=== PATIENT | male | born 1975 | race Caucasian/White ===

== ENCOUNTER 2020-07-18 19:08 | Inpatient (IN) | payer OTHER ==
[2020-07-18 20:22] LABS: #Eosinphils 0.1 thou/uL (0.0-0.7); #Lymphocytes 0.7 thou/uL (1.20-3.40); #Monocytes 0.5 thou/uL (0.11-0.59); %Basophils 0.3 % (0.0-1.0); %Eosinophils 1.4 % (0.0-10.0); %Lymphocytes 16.7 % (21.0-51.0); %Monocytes 12.1 % (0.0-10.0); %Neutrophils 69.5 % (42.0-75.0); Hemoglobin 13.3 g/dL (14.0-18.0); Mean Corpuscular HGB CONC 35.3 g/dL (32.0-36.0); Mean Corpuscular Hemoglobin 31.7 pg (27.0-31.0); Mean Corpuscular Volume 89.9 fL (78.0-98.0); Mean Platelet Volume 9.5 fL (7.4-10.4); Platelet Count 125 thou/uL (130-400); RBC Distribution Width 13.4 % (11.5-14.5); Red Blood Cell (RBC) Count 4.18 mill/uL (4.70-6.10); White Blood Cell (WBC) Count 4.4 thou/uL (4.8-10.8)
[2020-07-18 20:44] LABS: ALT (SGPT) 176 U/L (8-55); AST (SGOT) 63 U/L (5-34); Albumin 4.1 g/dL (3.5-5.0); Alkaline Phosphatase 86 U/L (40-110); Anion Gap 17 mmol/L (10-20); BUN (Urea Nitrogen) 11 mg/dL (8.9-20.6); Bilirubin, Total 2.3 mg/dL (0.2-1.2); Calc. Creatinine Clearance 0 mL/min (70-130); Calcium 9.2 mg/dL (7.8-10.44); Carbon Dioxide 27 mmol/L (22-29); Chloride 100 mmol/L (98-107); Globulin 3.1 g/dL (2.4-3.5); Glucose 94 mg/dL (70-105); Lipase 14 U/L (8-78); Potassium 3.5 mmol/L (3.5-5.1); Protein, Total 7.2 g/dL (6.0-8.3); Sodium 140 mmol/L (136-145)
[2020-07-18] MEDS ORDERED: Ondansetron PF 4 MG/2 ML Vial ONE (21:12)
--- NOTE | 2020-07-18 21:56 | CT ---
CT Abdomen Pelvis W Con: 07/18/2020 7:23 PM CLINICAL INFORMATION: Status post cholecystectomy 2 days ago with nausea and vomiting COMPARISON: None. TECHNIQUE: Multiple contiguous axial images were obtained and a CT of the abdomen and pelvis with IV contrast. C oronal and sagittal reformats were performed. FINDINGS: Lower Chest: Mild right basilar atelectasis Abdomen: Liver: within normal limits. Bile Ducts: Normal caliber. Gallbladder: Removed. Adjacent stranding changes are likely from recent surgery. Pancreas: within normal limits. Spleen: within normal limits. Adrenals: within normal limits. Kidneys: 4.3 cm left renal cyst. Pelvis: Reproductive Organs: No pelvic masses. Ureters: within normal limits. Bladder: within normal limits. Peritoneum: No ascites or free air, no fluid collection. Bowel: Normal caliber. Status post gastric sleeve procedure. Mesentery and Retroperitoneum: No enlarged mesenteric or retroperitoneal lymph nodes. Vessels: Normal. Abdominal Wall: within normal limits. Bones: Degenerative changes in the spine. IMPRESSION: 1. Post surgical changes from gastric sleeve procedure and cholecystectomy without acute intra-abdomi nal/pelvic abnormality 2. Left renal cyst
[2020-07-18] MEDS ORDERED: Lidocaine Viscous Sol 2% 15 ml UD Cup ONE (22:17)
[2020-07-18] MEDS ORDERED: Mag-Al 1200 mg/1200 mg/30 ML UDCUP ONE (22:17)
[2020-07-18] MEDS ORDERED: Haloperidol Lactate 5 MG/ML VIAL ONE (23:59)
[2020-07-18] MEDS ORDERED: diphenhydrAMINE 50 MG/ML VIAL ONE (23:59)
[2020-07-19] MEDS ORDERED: Ondansetron ODT 4 MG TAB PO PRN (03:01)
--- NOTE | 2020-07-19 03:15 | PDOC.HHP ---
Hospitalist HPI - History of Present Illness Nausea and vomiting History of Present Illness: This is a 44-year-old male patient With a history of obesity who presents on account of persistent nausea and vomiting for the past 2 to 3 weeks. Of note, patient had gastric sleeve surgery and [facility] about 4 weeks ago a week after which he started having nausea and vomiting. He did return to [place] a couple of days ago to have cholecystectomy. Since returning however he has been having worsening nausea and vomiting with bilious sputum and constant feeling of gagging leading to come to the ED for further evaluation. His vomitus is every now and then bloodstained At presentation his blood pressure was 175/86, pulse 74, temperature 98.4 respiratory 18 saturating 98 on room air. His BMP was essentially within normal limits, bilirubin was slightly elevated at 2.3 with AST at 63 and ALT at 176. WBC was 4.4, hemoglobin 13.[address] abdomen was done which showed postsurgical changes from gastric sleeve procedure and cholecystectomy without acute intra-abdominal abnormality. Left liver cyst was noted. Hospitalist ROS - Review of Systems Constitutional: denies: fever, chills, sweats Respiratory: denies: cough, dry, shortness of breath, hemoptysis Cardiovascular: denies: chest pain, palpitations, orthopnea Gastrointestinal: reports: nausea, vomiting. denies: abdominal pain, diarrhea, constipation Genitourinary: denies: dysuria, frequency, incontinence, hematuria Neurological: denies: weakness, numbness, incoordination All other systems reviewed; all pertinent +/- noted in HPI/Subj - Medication Medications: Medications: No chronic medications. Allergies: No known drug allergies Hospitalist History - Past Medical History Other Medical History: Obesity - Past Surgical History Other Surgical History: Gastric sleeve surgery, cholecystectomy - Family History Family History: reports: hypertension - Social History Smoking Status: Never smoker Alcohol: reports: None Living Situation: With Family Activity level: independent ambulation - Exam General Appearance: awake alert General - other findings: Severely obese Eye: PERRL, anicteric sclera ENT: normocephalic atraumatic, no oropharyngeal lesions, moist mucosa ENT - other findings: Erythematous wound in the left wall of oropharynx Heart: RRR, no murmur, no gallops, no rubs Respiratory: CTAB, no wheezes, no rales, no ronchi Gastrointestinal: soft, non-tender, non-distended, normal bowel sounds Gastrointestinal - other findings: Surgical wound is clean Extremities: no cyanosis, no clubbing, no edema Neurological: cranial nerve grossly intact, no weakness, no focal deficits Musculoskeletal: normal tone, normal strength, no muscle wasting Psychiatric: normal affect, normal behavior, A&O x 3 Hospitalist Results - Labs Result Diagrams: 07/20/20 05:48 07/20/20 05:48 Lab results: WBC 4.4 thou/uL (4.8-10.8) L 07/18/20 19:58 Hgb 13.3 g/dL (14.0-18.0) L 07/18/20 19:58 Hct 37.6 % (42.0-52.0) L 07/18/20 19:58 MCV 89.9 fL (78.0-98.0) 07/18/20 19:58 Plt Count 125 thou/uL (130-400) L 07/18/20 19:58 Neutrophils % 69.5 % (42.0-75.0) 07/18/20 19:58 Sodium 140 mmol/L (136-145) 07/18/20 19:58 Potassium 3.5 mmol/L (3.5-5.1) 07/18/20 19:58 Chloride 100 mmol/L (98-107) 07/18/20 19:58 Carbon Dioxide 27 mmol/L (22-29) 07/18/20 19:58 BUN 11 mg/dL (8.9-20.6) 07/18/20 19:58 Creatinine 0.85 mg/dL (0.7-1.3) 07/18/20 19:58 Glucose 94 mg/dL (70-105) 07/18/20 19:58 Lactic Acid 1.1 mmol/L (0.5-2.2) 07/18/20 19:58 Calcium 9.2 mg/dL (7.8-10.44) 07/18/20 19:58 Total Bilirubin 2.3 mg/dL (0.2-1.2) H 07/18/20 19:58 AST 63 U/L (5-34) H 07/18/20 19:58 ALT 176 U/L (8-55) H 12/22/20 19:58 Alkaline Phosphatase 86 U/L (40-110) 07/18/20 19:58 Serum Total Protein 7.2 g/dL (6.0-8.3) 07/18/20 19:58 Albumin 4.1 g/dL (3.5-5.0) 07/18/20 19:58 Lipase 14 U/L (8-78) 07/18/20 19:58 Hospitalist H&P A/P - Plan Plan: This is a 44-year-old male patient with a history of obesity presenting with persistent nausea and vomiting after he had a gastric sleeve surgery. Nausea and vomiting Likely secondary to surgery however because not clear. Received IV hydrationwe will continue As needed ondansetron IV/oral GI consult in a.m. Hypertension Blood pressure elevated We will start amlodipine As needed hydralazine Monitor BP Left renal cyst Follow-up after acute event subsided. Skinobesity S/p cholecystectomy/gastric sleeve Generally stable Surgery consult if needed for reevaluation. CODE STATUS full code VTE prophylaxisleft
[2020-07-19 04:41] LABS: #Lymphocytes 0.9 thou/uL (1.20-3.40); #Monocytes 0.5 thou/uL (0.11-0.59); #Neutrophils 2.2 thou/uL (1.40-6.50); %Basophils 0.3 % (0.0-1.0); %Eosinophils 0.7 % (0.0-10.0); %Lymphocytes 23.6 % (21.0-51.0); %Monocytes 14.4 % (0.0-10.0); %Neutrophils 60.9 % (42.0-75.0); Hemoglobin 11.7 g/dL (14.0-18.0); Mean Corpuscular HGB CONC 34.3 g/dL (32.0-36.0); Mean Corpuscular Hemoglobin 30.8 pg (27.0-31.0); Mean Corpuscular Volume 89.8 fL (78.0-98.0); Mean Platelet Volume 9.4 fL (7.4-10.4); Platelet Count 104 thou/uL (130-400); RBC Distribution Width 13.3 % (11.5-14.5); Red Blood Cell (RBC) Count 3.81 mill/uL (4.70-6.10); White Blood Cell (WBC) Count 3.6 thou/uL (4.8-10.8)
[2020-07-19 04:51] LABS: Anion Gap 15 mmol/L (10-20); BUN (Urea Nitrogen) 11 mg/dL (8.9-20.6); Calc. Creatinine Clearance 0 mL/min (70-130); Calcium 8.6 mg/dL (7.8-10.44); Carbon Dioxide 26 mmol/L (22-29); Chloride 102 mmol/L (98-107); Glucose 94 mg/dL (70-105); Potassium 3.2 mmol/L (3.5-5.1); Sodium 140 mmol/L (136-145)
[2020-07-19 05:11] VITALS: BMI 29.1
[2020-07-19] MEDS: Dextrose 5%-Lactated Ringers 1,000 ML IV SCH ×3 (05:35→21:30)
[2020-07-19] MEDS: hydrALAZINE 20 MG/ML VIAL SLOW IVP PRN ×2 (05:36→19:46)
[2020-07-19] MEDS: Amlodipine 10 MG TAB PO SCH (09:10)
[2020-07-19] MEDS: Enoxaparin Sodium 40 MG/0.4 ML SYRINGE SC SCH (09:11)
--- NOTE | 2020-07-19 12:10 | PDOC.HOSPP ---
- Subjective Encounter Date: 07/19/20 Encounter Time: 12:08 Subjective: Mr. Larsen was seen today in follow-up of persistent Nausea and vomiting. He says as long as he is awake, he is either feeling nauseated. or vomiting. He notes some mild abdominal discomfort. - Objective Vital Signs & Weight: Vital Signs (12 hours) Temp Pulse Resp BP BP BP Pulse Ox 07/19/20 07:51 98.2 F 77 16 169/96 H 95 07/19/20 05:36 69 195/116 H 07/19/20 04:40 98.3 F 70 18 195/116 H 96 Weight Weight 186 lb 1.6 oz I&O: 07/18/20 07/19/20 07/20/20 06:59 06:59 06:59 Intake Total 123 Balance 123 Result Diagrams: 07/19/20 04:12 07/19/20 04:12 Hospitalist ROS - Medication Medications: Active Medications Generic Name Dose Route Start Last Admin Trade Name Freq PRN Reason Stop Dose Admin Amlodipine Besylate 10 mg 07/19/20 09:00 07/19/20 09:10 Amlodipine 10 Mg Tab PO Not Given DAILY ADRIANE Enoxaparin Sodium 40 mg 07/19/20 09:00 07/19/20 09:11 Enoxaparin Sodium 40 Mg/0.4 Ml Syringe SC 40 mg 0900 ADRIANE Administration Hydralazine HCl 10 mg 07/19/20 03:02 07/19/20 05:36 Hydralazine 20 Mg/Ml Vial SLOW IVP 10 mg Q4H PRN Administration Hypertension Dextrose/Lactated Ringer's 1,000 mls @ 75 mls/hr 07/19/20 03:00 07/19/20 05:35 D5 Lr IV 1,000 mls .[id number] ADRIANE Administration - Exam Eye: PERRL, anicteric sclera Heart: RRR, no murmur, no gallops, no rubs, normal peripheral pulses Respiratory: CTAB, no wheezes, no rales, no ronchi, normal chest expansion Gastrointestinal: soft (+ mild diffuse tenderness, no rebound or guarding), non- distended, normal bowel sounds Extremities: no cyanosis, no edema Hosp A/P (1) Nausea and vomiting Code(s): R11.2 - NAUSEA WITH VOMITING, UNSPECIFIED Status: Acute (2) Obesity Code(s): E66.9 - OBESITY, UNSPECIFIED Status: Chronic (3) Hypertension Code(s): I10 - ESSENTIAL (PRIMARY) HYPERTENSION Status: Acute - Plan * Nausea and vomiting following Gastric sleeve one month ago, and recent Cholecystectomy, 3 days ago. . He says he was doing fine after the gastric sleeve, for about 3 weeks, then he began to have difficulty with Nausea and vomiting. He says he was instructed to go back to [place], where he had a lap liliana done, he says due to findings of elevated liver function tests. However his symptoms have not improved.- Will place him on scheduled Reglan. and continue IV fluids, and monitor his electrolytes, and replace as needed * If his symptoms persists, then GI consult. * HTN- blood pressure is elevated- will add medication prn, and once tolerating p.o. consider a scheduled anti-hypertensive.
[2020-07-19] MEDS ORDERED: Potassium Chloride 20 MEQ in Premix Bag 1 BAG IVPB SCH (12:30)
[2020-07-19] MEDS: Metoclopramide HCl 10 MG/2 ML VIAL IVP SCH ×3 (13:04→23:44)
[2020-07-19] MEDS: Morphine 2 MG/ML VIAL SLOW IVP PRN ×2 (16:45→20:38)
[2020-07-19] MEDS: Pantoprazole 40 MG VIAL IVP SCH (19:55)
[2020-07-19] MEDS: Ondansetron PF 4 MG/2 ML Vial IVP PRN (19:55)
[2020-07-19] MEDS ORDERED: Labetalol HCl 100 MG/20 ML VIAL SLOW IVP PRN (21:33)
[2020-07-20] MEDS: Morphine 2 MG/ML VIAL SLOW IVP PRN (00:17)
[2020-07-20] MEDS: Metoclopramide HCl 10 MG/2 ML VIAL IVP SCH ×4 (06:11→23:26)
[2020-07-20 06:41] LABS: #Lymphocytes 0.6 thou/uL (1.20-3.40); #Monocytes 0.4 thou/uL (0.11-0.59); #Neutrophils 2.1 thou/uL (1.40-6.50); %Basophils 0.2 % (0.0-1.0); %Eosinophils 1.1 % (0.0-10.0); %Monocytes 13.7 % (0.0-10.0); %Neutrophils 67.1 % (42.0-75.0); Hemoglobin 11.6 g/dL (14.0-18.0); Mean Corpuscular HGB CONC 35.4 g/dL (32.0-36.0); Mean Corpuscular Hemoglobin 31.8 pg (27.0-31.0); Mean Corpuscular Volume 89.9 fL (78.0-98.0); Mean Platelet Volume 9.3 fL (7.4-10.4); Platelet Count 112 thou/uL (130-400); RBC Distribution Width 13.3 % (11.5-14.5); Red Blood Cell (RBC) Count 3.64 mill/uL (4.70-6.10); White Blood Cell (WBC) Count 3.1 thou/uL (4.8-10.8)
[2020-07-20 06:45] LABS: BUN (Urea Nitrogen) 7 mg/dL (8.9-20.6); Calc. Creatinine Clearance 145 mL/min (70-130); Calcium 8.5 mg/dL (7.8-10.44); Chloride 100 mmol/L (98-107); Glucose 126 mg/dL (70-105); Magnesium 1.7 mg/dL (1.6-2.6); Potassium 3.2 mmol/L (3.5-5.1); Sodium 137 mmol/L (136-145)
[2020-07-20] MEDS: Dextrose 5%-Lactated Ringers 1,000 ML IV SCH ×2 (06:49→09:24)
[2020-07-20 07:14] LABS: Anion Gap 17 mmol/L (10-20); Carbon Dioxide 23 mmol/L (22-29)
[2020-07-20] MEDS ORDERED: Electrolyte Replacement Protocol 1 EACH FS ONE (08:12)
[2020-07-20] MEDS ORDERED: NON-CRITICAL ELECTROLYTE REPLACEMENT PROTOCOL FS PRN (08:15)
[2020-07-20] MEDS: Pantoprazole 40 MG VIAL IVP SCH ×2 (09:22→20:07)
[2020-07-20] MEDS: Amlodipine 10 MG TAB PO SCH (09:22)
[2020-07-20] MEDS: Enoxaparin Sodium 40 MG/0.4 ML SYRINGE SC SCH (09:23)
[2020-07-20 09:53] LABS: HBCM Index 0.12 S/CO (0-0.79); HBSAg Index 0.27 S/CO (0-0.99); Hep A IgM AB Non-Reactive (NonReactive); Hep A IgM S/CO 0.14 S/CO (0-0.79); Hep B Surf Ag Non-Reactive S/CO (NonReactive); Hepatitis B Core IgM Abs Non-Reactive (NonReactive)
[2020-07-20 10:35] LABS: Hep C IgG Ab Reflex HepC Qnt (NonReactive); Hep C Index 1.51 S/CO (0-0.79)
--- NOTE | 2020-07-20 11:59 | PDOC.HOSPP ---
- Subjective Encounter Date: 07/20/20 Encounter Time: 11:56 Subjective: 44-year-old male past medical history of hypertension, GERD, obesity who presents for persistent nausea and vomiting after sleeve gastrectomy on May 24. Patient reports that he has had consistent nausea and vomiting and since his liver enzymes were also elevated he underwent a cholecystectomy 4 days ago. Patient has had a worsening in his nausea and vomiting symptoms since the surgery. Patient unable to tolerate practically anything p.o. He does note that he sometimes bring up blood-streaked sputum and has difficulty swallowing. Patient reports that he has a large bruise in the back of his throat from the intubation which is making his nausea and vomiting much worse. He endorses generalized abdominal pain, which is intermittent. Has not passed any stools since surgery, but is passing flatus. He denies shortness of breath, chest pain, palpitations. - Objective Vital Signs & Weight: Vital Signs (12 hours) Temp Pulse Resp BP BP BP Pulse Ox 07/20/20 11:21 98.4 F 83 16 157/96 H 96 07/20/20 09:22 86 136/79 07/20/20 08:51 98.5 F 86 14 136/79 96 07/20/20 04:31 98.6 F 92 16 158/95 H 95 07/20/20 00:13 85 166/90 H Weight Admit Weight 186 lb 1.6 oz Weight 186 lb 1.6 oz I&O: 07/19/20 07/20/20 07/21/20 06:59 06:59 06:59 Intake Total 123 Balance 123 Result Diagrams: 07/21/20 05:23 07/21/20 05:23 Hospitalist ROS - Review of Systems Constitutional: denies: fever, chills, sweats, weakness, malaise, other Eyes: denies: pain, vision change, conjunctivae inflammation, eyelid inflammation, redness, other ENT: denies: ear pain, ear discharge, nose pain, nose discharge, nose congestion, mouth pain, mouth swelling, throat pain, throat swelling, other Respiratory: denies: cough, dry, shortness of breath, hemoptysis, SOB with excertion, pleuritic pain, sputum, wheezing, other Cardiovascular: denies: chest pain, palpitations, orthopnea, paroxysmal noc. dyspnea, edema, light headedness, other Gastrointestinal: reports: nausea, vomiting, abdominal pain, constipation. denies: diarrhea, melena, hematochezia, other Genitourinary: denies: dysuria, frequency, incontinence, hematuria, retention, other Musculoskeletal: denies: neck pain, shoulder pain, arm pain, back pain, hand p ain, leg pain, foot pain, other Skin: denies: rash, lesions, nilton, bruising, other Neurological: denies: weakness, numbness, incoordination, change in speech, confusion, seizures, other - Medication Medications: Active Medications Generic Name Dose Route Start Last Admin Trade Name Freq PRN Reason Stop Dose Admin Amlodipine Besylate 10 mg 07/19/20 09:00 07/20/20 09:22 Amlodipine 10 Mg Tab PO Not Given DAILY ADRIANE Enoxaparin Sodium 40 mg 07/19/20 09:00 07/20/20 09:23 Enoxaparin Sodium 40 Mg/0.4 Ml Syringe SC 40 mg 0900 ADRIANE Administration Hydralazine HCl 10 mg 07/19/20 03:02 07/19/20 19:46 Hydralazine 20 Mg/Ml Vial SLOW IVP 10 mg Q4H PRN Administration Hypertension Dextrose/Lactated Ringer's 1,000 mls @ 75 mls/hr 07/19/20 03:00 07/20/20 09 :24 D5 Lr IV 1,000 mls .[id number] ADRIANE Administration Labetalol HCl 10 mg 07/19/20 21:33 07/19/20 23:43 Labetalol Hcl 100 Mg/20 Ml Vial SLOW IVP 07/20/20 21:34 10 mg ONE PRN Administration Systolic BP > 180 Metoclopramide HCl 10 mg 07/19/20 12:15 07/20/20 06:11 Metoclopramide Hcl 10 Mg/2 Ml Vial IVP 10 mg Q6H ADRIANE Administration Morphine Sulfate 2 mg 07/19/20 15:45 07/20/20 00:17 Morphine 2 Mg/Ml Vial SLOW IVP 2 mg Q4H PRN Administration Moderate to Severe Pain (6-10) Ondansetron HCl 4 mg 07/19/20 03:01 07/19/20 19:55 Ondansetron Pf 4 Mg/2 Ml Vial IVP 4 mg Q6H PRN Administration Nausea/Vomiting Pantoprazole Sodium 40 mg 07/19/20 21:00 07/20/20 09:22 Pantoprazole 40 Mg Vial IVP 40 mg Q12HR ADRIANE Administration - Exam General Appearance: NAD, awake alert Eye: PERRL, anicteric sclera ENT: moist mucosa ENT - other findings: Laceration and hematoma to soft palate Neck: supple, symmetric, no JVD, no thyromegaly, no lymphadenopathy, no carotid bruit Heart: RRR, no murmur, no gallops, no rubs, normal peripheral pulses Respiratory: CTAB, no wheezes, no rales, no ronchi, normal chest expansion, no tachypnea, normal percussion Gastrointestinal: soft, non-tender, non-distended, normal bowel sounds, no palpable masses, no hepatomegaly, no splenomegaly, no bruit Extremities: no cyanosis, no clubbing, no edema Skin: normal turgor, no lesions, no rashes Neurological: cranial nerve grossly intact, normal sensation to touch, no weakness, no focal deficits, no new deficit Musculoskeletal: normal tone, normal strength, no muscle wasting Psychiatric: normal affect, normal behavior, A&O x 3 Hosp A/P - Plan Chronic nausea and vomiting with p.o. intolerance Patient status post sleeve gastrectomy on May 16, 2020 and has had persistent nausea and vomiting with p.o. intolerance. Patient's nausea vomiting symptoms were worsened since patient also had elevated liver enzymes he underwent a cholecystectomy in [place] a few days ago. Patient reports worsening of his nausea and vomiting after his cholecystectomy. Patient has tried Zofran and Reglan dose without effect. His liver enzymes remain elevated. He has mild abdominal pain but is nonperitoneal. CT abdomen showed postsurgical changes but no acute findings. Patient requests to speak with GI doctor about his persistent symptoms. Suspect nausea and vomiting likely secondary to postoperative course of sleeve gastrectomy compounded by effects of recent anesthesia. Plan Continue Zofran, Reglan IV maintenance fluids GI consult Dysphagia with soft palate injury Patient reports he has difficulty swallowing and has been bringing up blood over the past few days since his cholecystectomy. Patient reports that his throat was injured during intubation. On exam there is a laceration and small hematoma to the soft palate. Will obtain CT neck to assess for hematoma since patient reports continued worsening difficulty swallowing. Medically stable with no concern for immediate threat to airway. Plan CT neck Elevated liver enzymes Patient with mildly elevated liver enzymes associated with nausea and vomiting. Elevation was initially thought to be related to patient's gallbladder, however they still elevated status post cholecystectomy. CT scan with no acute findings. Suspect nonalcoholic fatty liver disease versus mild elevation due to surgery. Will obtain hepatitis panel as well as GI consult to further evaluate. Plan Hepatitis panel TSH GI consult Hypertension History of hypertension on home amlodipine. Will keep patient on IV hydralazine and labetalol as needed due to p.o. intolerance. DVT prophylaxisLovenox Full code Case discussed with Dr. Garcia.
[2020-07-20 12:58] LABS: ALT (SGPT) 329 U/L (8-55); AST (SGOT) 125 U/L (5-34); Albumin 3.5 g/dL (3.5-5.0); Alkaline Phosphatase 110 U/L (40-110); Bilirubin, Direct 1.1 mg/dL (0.1-0.3); Bilirubin, Total 1.6 mg/dL (0.2-1.2); Protein, Total 6.2 g/dL (6.0-8.3)
[2020-07-20] MEDS ORDERED: Iopamidol-370 76% 500 ML 1 ML ONE (13:15)
[2020-07-20] MEDS ORDERED: Potassium Phosphate 30 MMOL in Sodium Chloride 0.9% 250 ML 250 ML IVPB SCH ×2 (15:00→16:15)
--- NOTE | 2020-07-20 15:45 | CT ---
CT OF THE SOFT TISSUES OF THE NECK WITH IV CONTRAST INDICATION: History of traumatic intubation with concern for soft palate hematoma COMPARISON: None FINDINGS: Aerodigestive tract: Clear. Parotids/Submandibular/Thyroid glands: Normal. Lymph nodes: No pathologically enlarged lymph nodes. Lung Apices: Clear. Bones: No acute fracture or subluxation demonstrated. There is scattered degenerative and osteoarthr itic change present. Incidentals: None. IMPRESSION: No overt evidence to suggest traumatic injury to the visualized aerodigestive tract.
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
[2020-07-20] MEDS ORDERED: diphenhydrAMINE 50 MG/ML VIAL IVP SCH (23:45)
[2020-07-21] MEDS: Dextrose 5%-Lactated Ringers 1,000 ML IV SCH (05:23)
[2020-07-21] MEDS: Metoclopramide HCl 10 MG/2 ML VIAL IVP SCH ×2 (05:23→11:56)
[2020-07-21 05:40] LABS: INR-International Normal Ratio 1.3; Prothrombin Time 16.5 sec (12.0-14.7)
[2020-07-21 05:46] LABS: Hemoglobin A1c 4.6 % (4.0-6.0)
[2020-07-21 05:59] LABS: Magnesium 1.6 mg/dL (1.6-2.6)
[2020-07-21 06:02] LABS: ALT (SGPT) 245 U/L (8-55); AST (SGOT) 56 U/L (5-34); Albumin 3.5 g/dL (3.5-5.0); Alkaline Phosphatase 101 U/L (40-110); Anion Gap 12 mmol/L (10-20); BUN (Urea Nitrogen) 5 mg/dL (8.9-20.6); Bilirubin, Total 1.5 mg/dL (0.2-1.2); Calc. Creatinine Clearance 141 mL/min (70-130); Calcium 8.5 mg/dL (7.8-10.44); Carbon Dioxide 30 mmol/L (22-29); Chloride 99 mmol/L (98-107); Globulin 2.9 g/dL (2.4-3.5); Glucose 119 mg/dL (70-105); Iron 62 ug/dL (65-175); Lipase 17 U/L (8-78); Phosphorus 3.3 mg/dL (2.3-4.7); Potassium 3.3 mmol/L (3.5-5.1); Protein, Total 6.4 g/dL (6.0-8.3); Sodium 138 mmol/L (136-145)
[2020-07-21 06:10] LABS: Band 20 % (5-11); Eosinophils 1 % (0-10); Hemoglobin 11.2 g/dL (14.0-18.0); Hypochromia SLIGHT = 6-15 cells (100X) (0-5/hpf); Lymphocytes 22 % (21-51); MDiff Complete? YES; Mean Corpuscular HGB CONC 35.4 g/dL (32.0-36.0); Mean Corpuscular Hemoglobin 31.8 pg (27.0-31.0); Mean Corpuscular Volume 89.8 fL (78.0-98.0); Mean Platelet Volume 8.9 fL (7.4-10.4); Monocytes 14 % (0-10); Neutrophil 36 % (42-75); Platelet Count 94 thou/uL (130-400); Platelet Morphology Comment Appears Decreased; RBC Distribution Width 13.1 % (11.5-14.5); Reactive Lymphocytes 7 % (0-10); Red Blood Cell (RBC) Count 3.52 mill/uL (4.70-6.10); White Blood Cell (WBC) Count 2.6 thou/uL (4.8-10.8)
[2020-07-21 06:19] LABS: Ferritin 1129.23 ng/mL (22-322); Thyroid Stimulating Hormone 4.1494 uIU/mL (0.35-4.94)
[2020-07-21] MEDS: Enoxaparin Sodium 40 MG/0.4 ML SYRINGE SC SCH (07:48)
[2020-07-21] MEDS ORDERED: NS 0.9% w/ 40 MEQ KCL 1,000 ML IV SCH (09:45)
[2020-07-21] MEDS ORDERED: Electrolyte Replacement Protocol 1 EACH FS SCH (10:00)
--- NOTE | 2020-07-21 10:43 | NM ---
Exam: Nuclear medicine HIDA scan HISTORY: Status post cholecystectomy. Pain. Evaluate for bile leak COMPARISON: None Correlation: Abdomen pelvis CT 07/18/2020 TECHNIQUE: Patient was ministered 5.1 mCi of technetium 99m mebrofenin intravenously. FINDINGS: Appropriate uptake of the radiotracer by the hepatic parenchyma. Localization of radiotrace r in the intrahepatic biliary system. Passage of radiotracer from the common bile duct into the small bowel. No scintigraphic evidence of bile leak. IMPRESSION: No scintigraphic evidence of a bile leak.
[2020-07-21] MEDS: Ondansetron PF 4 MG/2 ML Vial IVP PRN (10:59)
[2020-07-21] MEDS: Pantoprazole 40 MG VIAL IVP SCH (11:00)
[2020-07-21] MEDS: Amlodipine 10 MG TAB PO SCH (11:00)
[2020-07-21] MEDS ORDERED: diphenhydrAMINE 50 MG/ML VIAL IVP PRN (11:12)
[2020-07-21] MEDS ORDERED: methylPREDNISolone Sod Succ/PF 125 MG/2 ML VIAL IVP SCH (12:00)
[2020-07-21 12:10] VITALS: TEMP 98.2
[2020-07-21 12:13] VITALS: BP 166/101
[2020-07-21] MEDS ORDERED: Magnesium 2 GM/50 ML 2 GM in Premix Bag 1 BAG IVPB SCH (12:30)
--- NOTE | 2020-07-21 13:08 | PDOC.HOSPP ---
- Subjective Encounter Date: 07/21/20 Encounter Time: 09:10 Subjective: Patient seen this morning. He still has difficulty with swallowing currently n.p.o. so far. Throat examined not able to visualize completely. He has no visible respiratory distress and not toxic looking. A CT of the neck were reviewed with him. He currently is getting Levaquin. - Objective Vital Signs & Weight: Vital Signs (12 hours) Temp Pulse Resp BP Pulse Ox 07/21/20 12:07 98.2 F 74 16 166/101 H 94 L 07/21/20 11:00 84 96 07/21/20 07:41 98.6 F 84 18 154/86 H 96 07/21/20 04:00 97.6 F 96 20 139/81 93 L Weight Admit Weight 186 lb 1.6 oz Weight 186 lb 1.6 oz Result Diagrams: 07/21/20 05:23 07/21/20 05:23 Hospitalist ROS - Medication Medications: Active Medications Generic Name Dose Route Start Last Admin Trade Name Freq PRN Reason Stop Dose Admin Amlodipine Besylate 10 mg 07/19/20 09:00 07/21/20 11:00 Amlodipine 10 Mg Tab PO Not Given DAILY ADRIANE Diphenhydramine HCl 12.5 mg 07/21/20 11:12 07/21/20 11:56 Diphenhydramine 50 Mg/Ml Vial IVP 12.5 mg Q6H PRN Administration Itching & Insomnia Enoxaparin Sodium 40 mg 07/19/20 09:00 07/21/20 07:48 Enoxaparin Sodium 40 Mg/0.4 Ml Syringe SC Not Given 0900 ADRIANE Hydralazine HCl 10 mg 07/19/20 03:02 07/19/20 19:46 Hydralazine 20 Mg/Ml Vial SLOW IVP 10 mg Q4H PRN Administration Hypertension Levofloxacin 500 mg/ Device 100 mls @ 100 mls/hr 07/20/20 16:00 07/20/20 17:18 IVPB 100 mls Q24HR ADRIANE Administration Potassium Chloride/Sodium Chloride 1,000 mls @ 100 mls/hr 07/21/20 09:45 07/21/20 11:58 Ns 0.9% W/ 40 Meq Kcl IV 1,000 mls .Q10H ADRIANE Administration Methylprednisolone Sodium Succinate 60 mg 07/21/20 12:00 07/21/20 11:56 Methylprednisolone Sod Succ/Pf 125 Mg/2 Ml Vial IVP 07/23/20 00:01 60 mg Q12H ADRIANE Administration Metoclopramide HCl 10 mg 07/19/20 12:15 07/21/20 11:56 Metoclopramide Hcl 10 Mg/2 Ml Vial IVP 10 mg Q6H ADRIANE Administration Morphine Sulfate 2 mg 07/19/20 15:45 07/20/20 00:17 Morphine 2 Mg/Ml Vial SLOW IVP 2 mg Q4H PRN Administration Moderate to Severe Pain (6-10) Ondansetron HCl 4 mg 07/19/20 03:01 07/21/20 10:59 Ondansetron Pf 4 Mg/2 Ml Vial IVP 4 mg Q6H PRN Administration Nausea/Vomiting Pantoprazole Sodium 40 mg 07/19/20 21:00 07/21/20 11:00 Pantoprazole 40 Mg Vial IVP 40 mg Q12HR ADRIANE Administration - Exam General Appearance: NAD, awake alert Eye: PERRL ENT: normocephalic atraumatic Neck: supple Heart: RRR, normal peripheral pulses Respiratory: CTAB, normal chest expansion Gastrointestinal: soft Neurological: cranial nerve grossly intact, no focal deficits Psychiatric: A&O x 3 Hosp A/P - Plan Chronic nausea and vomiting with p.o. 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 - CT abdomen showed postsurgical changes but no acute findings. Patient requests to speak with GI doctor about his persistent symptoms. Continue antiemetics. -HIDA scan no scintigraphic evidence of a bile leak. Dysphagia with soft palate injury Hemoptysis since cholecystectomy -Possible trauma during intubation for surgery Patient reports he has difficulty swallowing and has been bringing up blood over the past few days since his cholecystectomy. Patient reports that his throat was injured during intubation. On exam there is a laceration and small hematoma to the soft palate. Will obtain CT neck to assess for hematoma since patient reports continued worsening difficulty swallowing. Medically stable with no concern for immediate threat to airway. Plan CT neck did not show any traumatic injury in the aerodigestive tract Elevated liver enzymes -Trending down -Status post cholecystectomy Hypertension History of hypertension on home amlodipine. Will keep patient on IV hydralazine and labetalol as needed due to p.o. intolerance.
--- NOTE | 2020-07-21 14:28 | PRG ---
DATE OF SERVICE: 07/21/2020 SUBJECTIVE: Mr. Larsen states he is able to tolerate liquids. However, the nurse says he has been retching every time he does drink. He reports when he awakes in the morning, he gets some phlegm in his throat and it will make him retch. His epigastric pain is better. He has had a HIDA scan today, which showed no evidence of bile leak and no evidence of biliary obstruction. CT scan of the neck soft tissue was done yesterday that was negative. PHYSICAL EXAMINATION: GENERAL: He is resting in bed. He is on IV fluids. VITAL SIGNS: Temperature is 98, pulse 84, blood pressure 166/101, mother is at the bedside. LUNGS: Clear. ABDOMEN: Nontender. Trocar sites are clean and dry. There is no palpable hepatosplenomegaly. LABORATORY DATA: White count 2.6, hemoglobin 11.2, platelet count 94,000. Sodium 138, potassium 3.3, BUN and creatinine 5 and 0.78. Iron 62, TIBC 198, saturation 31, ferritin 1129. Bilirubin 1.5, AST 56, ALT 245, lipase 17. IgG, IgM normal. Hepatitis C antibody positive. The remainder of workup pending. ASSESSMENT: 1. I think that his difficulty with vomiting and retching is due to a large hematoma on his soft palate. I have talked to Dr. Laws. She started him on a steroid for that to see if that helps decrease swelling. He is on a PPI. He is on Lovenox. He is on levofloxacin as well and Reglan. Recommended that if he continues to have the retching and the discomfort in his throat, they get ENT to look at this and see if there is a big hematoma or something else that needs to be done. 2. Thrombocytopenia with leukopenia, possibly related to portal hypertension. He denies any knowledge of liver disease or being told he had any liver disease or fatty liver at the time of his weight loss surgery in [place] or his cholecystectomy a few months after his weight loss surgery, but this probably is related to fatty liver or hepatitis C, that workup is pending. He is stable. He shows no signs of ascites. 3. Hepatitis C antibody positive with no prior knowledge of this. 4. Elevated liver enzymes. CT showed no evidence of biliary obstruction or ascites. HIDA scan showed no evidence of biliary obstruction or bile leak. RECOMMENDATIONS: 1. At this time, we will sign off. Would call ENT if throat issues persist to see if they have anything to offer. 2. He will see me in the office in 2 to 4 weeks with regard to his hep C antibody for followup. Job ID: [id number]
--- NOTE | 2020-07-21 15:09 | PDOC.DS.DS ---
Provider - Provider Date of Admission: 07/19/20 12:07 Admitting Provider: Wally Umaña MD Primary Care Physician: NO PCP PROVIDER Course - Hospital Course Hospital Course: Chronic nausea and vomiting with p.o. 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 - CT abdomen showed postsurgical changes but no acute findings. Patient requests to speak with GI doctor about his persistent symptoms. Continue antiemetics. -HIDA scan no scintigraphic evidence of a bile leak. Dysphagia with soft palate injury Hemoptysis since cholecystectomy -Possible trauma during intubation for surgery Patient reports he has difficulty swallowing and has been bringing up blood over the past few days since his cholecystectomy. Patient reports that his throat wa s injured during intubation. On exam there is a laceration and small hematoma to the soft palate. Will obtain CT neck to assess for hematoma since patient reports continued worsening difficulty swallowing. Medically stable with no concern for immediate threat to airway. Plan CT neck did not show any traumatic injury in the aerodigestive tract Elevated liver enzymes -Trending down -Status post cholecystectomy Hypertension History of hypertension on home amlodipine. Will keep patient on IV hydralazine and labetalol as needed due to p.o. intolerance. GI signed off. ENT consult placed given his severe swelling in his throat. He is not in any imminent danger for airway compromise. However he is not able to swallow anything I started him on prednisone. I am consulting ENT it is . If they are not able to make it today and patient still stubborn wanting to to go home then he needs to leave [place]. Patient feels that he can do the same thing what we are doing here, at home. I am not comfortable this patient going home at this point with the significant pharyngeal swelling. If the swelling reduced and he is able to have some soft diet intake then it is reasonable to send him home with outpatient follow-up with ENT. Lately I learned that patient decided to leave [place] and he does not want to wait for ENT. I will give him a short course of prednisone. Resuscitation Status: 07/19/20 02:56 Resuscitation Status Routine Resuscitation Status: FULL: Full Resuscitation - Labs Lab Results: 07/21/20 05:23 07/21/20 05:23 Abnormal Lab Results - Last 48 hrs 07/20/20 05:48: Potassium 3.2 L, BUN 7 L 07/20/20 05:48: WBC 3.1 L, RBC 3.64 L, Hgb 11.6 L, Hct 32.7 L, MCH 31.8 H, Plt Count 112 L, Lymphocytes % 18.0 L, Monocytes % 13.7 H, Lymphocytes # 0.6 L 07/20/20 08:40: Hepatitis C Antibody Reflex HepC Qnt H 07/20/20 11:56: Total Bilirubin 1.6 H, Direct Bilirubin 1.1 H, AST 125 H, ALT 329 H 07/21/20 05:23: Ferritin 1129.23 H 07/21/20 05:23: Potassium 3.3 L, Carbon Dioxide 30 H, BUN 5 L, Iron 62 L, Total Bilirubin 1.5 H, AST 56 H, ALT 245 H 07/21/20 05:23: WBC 2.6 L, RBC 3.52 L, Hgb 11.2 L, Hct 31.6 L, MCH 31.8 H, Plt Count 94 L, Neutrophils % (Manual) 36 L, Band Neuts % (Manual) 20 H, Monocytes % (Manual) 14 H, Plt Morphology Comment Appears Decreased L 07/21/20 05:23: PT 16.5 H 07/21/20 05:23: Iron 61 L, TIBC 198 L - Physical Exam Vitals: Vital Signs (12 hours) Temp Pulse Resp BP Pulse Ox 07/21/20 12:07 98.2 F 74 16 166/101 H 94 L 07/21/20 11:00 84 96 07/21/20 07:41 98.6 F 84 18 154/86 H 96 07/21/20 04:00 97.6 F 96 20 139/81 93 L Weight Admit Weight 186 lb 1.6 oz Weight 186 lb 1.6 oz Physical Exam: The patient was seen and examined on the day of discharge. Plan - Discharge Medications Home Medications: Medication Instructions Recorded Confirmed Type No Known 07/19/20 07/19/20 History Allergies: No Known Allergies Allergy (Verified 07/19/20 05:08) - Follow up Plan Referrals: PROVIDER,NO PCP [Primary Care Provider] - Disposition: HOME Quality - Care Measures CORE MEASURES:: N/A
[2020-07-21] MEDS: Potassium Chloride 20 MEQ in Premix Bag 1 BAG IVPB SCH (15:50)
--- NOTE | 2020-07-21 16:16 | CON ---
DATE OF CONSULTATION: 07/21/2020 REASON FOR CONSULTATION: Hepatitis C. HISTORY OF PRESENT ILLNESS: A 44-year-old who has a history of some type of hepatitis many years ago, which was diagnosed in this area, and apparently, they told him it was due to one of the statins that he was taking, does not recall his hepatitis C, but actually he tells me that it was then negative. He had been living in [facility] for many years, retired from the oil business, and [place] and then now he was in [place] for vacation, and apparently, developed nausea and abdominal pain, and was admitted to hospital in [place], had a cholecystectomy and sustained an injury to the posterior oropharynx, which has been associated with persistent pain and nausea, that is the main reason he was admitted to this hospital. He had not been able to keep food down for the past 3 weeks. He had some vomiting associated with it. No headaches. No visual symptoms. No dyspnea or cough. No abdominal pain. No genitourinary symptoms. No joint symptoms. PAST MEDICAL HISTORY: Some form of hepatitis many years ago, diagnosed in this area, is not clear what the diagnosis was, they said to him that was drug- related hepatitis, never heard from that issue later, presumably was due to statin. He had a gastric sleeve surgery in 2019 and a recent cholecystectomy in [place]. He sustained an injury to this posterior oropharynx by the Anesthesia introduction of an ET tube. SOCIAL HISTORY: Had been retired, was living in [facility], and never smoker. ALLERGIES: NONE. MEDICATIONS: Had been on lisinopril. Currently, he is receivin. Lovenox. 2. Apresoline. 3. Levofloxacin. 4. Medrol. FAMILY HISTORY: Noncontributory. PHYSICAL EXAMINATION: VITAL SIGNS: Temperature has been normal, blood pressure 160/100, heart rate 74, respiratory rate 16, O2 saturation 94% to 96%. SKIN: Not particularly remarkable. No lymphadenopathy. HEENT: Ocular movements with normal findings. Pupils are equal. I did not actually visualize any scleral icterus, but that is probably from the level of bilirubin increase, which is mild to moderate. Oral cavity shows the area of laceration in the posterior oropharynx right above the uvula associated with bruising. His teeth are in good shape. NECK: Supple. LUNGS: Symmetric, clear breath sounds. HEART: S1 and S2, regular rate. ABDOMEN: Soft. Not distended or tender. No ascites. No bladder distention. MUSCULOSKELETAL: No joint inflammatory activity. Moves extremities equally. Cognitive function appears to be intact. No asterixis. LABORATORY DATA: WBC count 4.4 and 2.6, hemoglobin 11.2, platelets were 125 and now 94,000, 20% bands, 14% monocytes. INR 1.3. Creatinine 0.78. Iron 61, ferritin 1129. AST 125, ALT 329, bilirubin 1.1 and 1.6, albumin 3.5. SARS-CoV-2 was not done. Hepatitis C was positive with reflex, PCR pending. Hepatitis A and B serology negative. IMAGING STUDIES: Abdomen and pelvis CT from July 18 with normal liver, normal bile ducts, gallbladder removed, spleen normal. Had a soft tissue neck CT with no evidence of any abnormality noted. ASSESSMENT: 1. History of hepatitis in the past of uncertain etiology. 2. Hepatitis C serology positive with abnormal liver function tests and a recent injury to the posterior oropharynx, brought about by the intubation procedure for the acute cholecystitis management or what appears to have been acute cholecystitis. In addition to that, the patient has had a sleeve gastrectomy done. DISCUSSION: The hepatitis C diagnosis yet needs to be confirmed with PCR test, most likely will be positive. It is likely that this reflects chronic hepatitis C that he acquired many years ago elsewhere, and evidently he will be eligible for treatment, which nowadays is very simple and has a very high efficacy rate. The other question is other possible blood pathogens such as HIV that need to be checked for. I would also check him for syphilis. He had a HIDA scan which was normal, not showing any evidence of bile leak. He does have some signs that would suggest chronic liver disease such as pancytopenia, which would indicate some element of hypersplenism, which is usually associated with portal hypertension patients with chronic liver disease, so he could have compensated cirrhosis that would have repercussions in terms of what type of treatment and duration of treatment chosen for management of his hepatitis C. Job ID: [id number] MTDD
[2020-07-23 12:12] LABS: Hep C PCR-Quant HCV Not Detected IU/mL (.)
[2020-07-23 14:48] LABS: ANA Symphony (Qualitative) Negative (Negative); ANA Symphony (Quantitative) 0.2 Ratio (< 0.7 Negative); EliA Vaculitis New Method **** NEW METHOD ****; Mitochondrial Ab 0.8 U/mL (<4 Negative); dsDNA IgG Antibody 0.5 IU/mL (<10 Negative)
--- NOTE | 2020-07-24 08:59 | PQF ---
CLINICAL DOCUMENTATION CLARIFICATION FORM: Dear : Luis Laws Date / Time: 07/24/2020 08:59 Please exercise your independent, professional judgment in responding to the clarification form. Clinical indicators are provided on the bottom of this form for your review Please check appropriate box(es): [ ] Nausea and vomiting as a complication of recent cholecystectomy and sleeve gastrectomy [ x ] Nausea and vomiting due to soft palate injury [x ] Nausea and vomiting due to GERD [ ] Other diagnosis, please specify [ ] Unable to determine Physician Signature: Date/Time: For continuity of documentation, please document condition throughout progress notes and discharge summary. Thank You. To be completed by CDI/Coding staff for physician review: Present Clinical Indicators - Signs / Symptoms / Labs Results and Location in Medical Record [x] Chronic nausea and vomiting worsening after his cholecystectomy DS 07/21 [x] Dysphagia with soft palate injury DS 07/21 [x] Hemoptysis sisnce cholecystectomy possible trauma during intubation for srugery DS 07/21 [x] his difficultu with voiting and retching si due to a large hematoma on his soft palate DS 07/21 [x] swelling in his throat PN 07/21 [x] suspect nausea and vomiting likely secondary to postoperative course of sleeve gastrectomy compounded by effects of recent anesthesia PN 07/20 Present Risk Factors Results and Location in Medical Record [x] s/p cholecystectomy DS 07/21 [x] s/p sleeve gastrectomy DS 07/21 [x] Obesity Consult 07/20 [x] GERD PN 07/20 Present Treatments Results and Location in Medical Record [x] Gastroenterology Consult Consult 07/20 [x] IVF OCT 06 [x] Zofran 4mg Oral OCT 06 [x] Protonix 40mg IV OCT 06 CDS/Access Registrar Signature: Phillmicah Elma Arzola Phone #: [phone] Date/Time: 07/24/2020 This is a permanent part of the Medical Record [facility]
[2020-07-24 13:13] LABS: Smooth Muscle Total ABS 23 Units (0-19)
== END 2020-07-21 15:35 | disposition left against medical advice (07) | DRG 914 ==
LOC: ERS 19:08 → SURG B 07-19 01:14 → OBSVTOIN 07-19 12:07
PROVIDERS: ADMIT Student in an Organized Health Care Education/Training Program; ATTEND Internal Medicine
DX: S09.93XA Unspecified injury of face, initial encounter (principal); R04.2 Hemoptysis; K21.9 Gastro-esophageal reflux disease without esophagitis; K76.89 Other specified diseases of liver; I10 Essential (primary) hypertension; E66.9 Obesity, unspecified; R13.10 Dysphagia, unspecified; B19.20 Unspecified viral hepatitis C without hepatic coma; D72.819 Decreased white blood cell count, unspecified; D69.6 Thrombocytopenia, unspecified; Z98.84 Bariatric surgery status; Z90.49 Acquired absence of other specified parts of digestive tract; Z68.29 Body mass index [BMI] 29.0-29.9, adult; Z79.899 Other long term (current) drug therapy; X58.XXXA Exposure to other specified factors, initial encounter
CPT/HCPCS: 36415; 70491; 74177; 78226; 80048; 80053; 80074; 80076; 82103; 82104; 82390; 82728; 83036; 83516; 83540; 83550; 83605; 83690; 83735; 84100; 84443; 85025; 85610; 86038; 86225; 87522; 96361; 96372; 96374; 96375; A9537; C9113; G0378; J0360; J1200; J1630; J1650; J1956; J2270; J2405; J2765; J2930; J3480; J7050; Q9967

== ENCOUNTER 2020-09-01 14:01 | Inpatient (IN) | payer OTHER, SELFPAY ==
[2020-09-01] MEDS ORDERED: diphenhydrAMINE 50 MG/ML VIAL IVP PRN (14:51)
[2020-09-01] MEDS ORDERED: Mag-Al 1200 mg/1200 mg/30 ML UDCUP PO PRN (14:51)
[2020-09-01] MEDS ORDERED: Ondansetron PF 4 MG/2 ML Vial IVP PRN (14:51)
[2020-09-01] MEDS ORDERED: Acetaminophen 325 MG TAB PO PRN (14:51)
[2020-09-01] MEDS ORDERED: Promethazine HCl 25 MG/ML VIAL IM PRN (14:51)
[2020-09-01] MEDS ORDERED: Milk Of Magnesia 30 ML UDCUP PO PRN (14:51)
[2020-09-01] MEDS ORDERED: Acetaminophen/Codeine 30-300mg Tablet PO PRN ×2 (14:51)
[2020-09-01] MEDS ORDERED: Promethazine 25 MG TAB PO PRN (14:51)
[2020-09-01] MEDS ORDERED: traMADol HCl 50 MG TAB PO PRN (14:51)
[2020-09-01] MEDS ORDERED: diphenhydrAMINE 50 MG/ML VIAL IVP SCH (15:30)
[2020-09-01] MEDS: Dexamethasone 4 mg/ml Vial SLOW IVP SCH (17:52)
[2020-09-01] MEDS: traMADol HCl 50 MG TAB PO PRN (21:08)
[2020-09-01] MEDS: Pantoprazole 40 MG VIAL IVP SCH (21:09)
[2020-09-02] MEDS: Dexamethasone 4 mg/ml Vial SLOW IVP SCH ×3 (00:32→16:55)
[2020-09-02] MEDS ORDERED: FLU VACC QS2020-21(6MOS UP)/PF 60 MCG/0.5 ML SYRINGE IM ONE (09:00)
[2020-09-02] MEDS: Pantoprazole 40 MG VIAL IVP SCH (09:02)
[2020-09-02 11:10] VITALS: BMI 38.4
--- NOTE | 2020-09-02 11:32 | PRG ---
DATE OF SERVICE: 09/02/2020 SUBJECTIVE: I visited Mr. Larsen. He was accompanied by his mother in person and his father over the telephone by speaker phone. I agree with Nia Colon's evaluation dated 09/01/2020. The patient is a 44-year-old man with a history of morbid obesity and hepatitis, who had a gastric sleeve as well as cholecystectomy last fall, who was at several weeks of progressive decline, largely focused on gait and hand dysfunction. He has had multiple falls, ultimately presenting to the emergency room at [facility] and then transferred to rehab. At rehab, he had progressive issues with weakness and inability to ambulate and ultimately leading to an MRI of the cervical spine. Currently, he has decent strength in the lower extremity and the proximal upper extremity with some weakness in the hands. He has diffuse hyperreflexia and spasticity. The patient's MRI scan reveals a very large C5-C6 herniated disk with severe spinal cord compression. He is morbidly obese. IMPRESSION AND PLAN: The patient will require surgical decompression for the purpose of neurologic preservation. I am recommending a C5-C6 anterior cervical diskectomy and fusion. Because of his obesity, he is high risk for surgery, particularly high risk for the posterior surgery, so we will try to avoid the posterior decompression, but it is possible this will be needed at the same sitting or possibly at a later date. I discussed this at length with the patient and his family. I estimated approximately 10% risk of paralysis or other major neurologic deficit. We also discussed the assorted minor risks associated with the procedure. They expressed understanding and wished to proceed. Job ID: [id number]
--- NOTE | 2020-09-02 13:57 | PDOC.HOSPP ---
- Subjective Encounter Date: 09/02/20 Encounter Time: 10:28 Subjective: Patient seen this morning mother at bedside. Tentative plan by neurosurgery on Friday. Patient is not diabetic he is quite a good conversationalist. No complaints today - Objective Vital Signs & Weight: Vital Signs (12 hours) Temp Pulse Resp BP Pulse Ox 09/02/20 11:15 98.1 F 86 16 134/90 98 09/02/20 08:00 84 L 09/02/20 07:21 97.9 F 84 16 134/88 99 09/02/20 04:00 97.9 F 87 16 142/93 H 97 Weight Weight 238 lb I&O: 09/01/20 09/02/20 09/03/20 06:59 06:59 06:59 Intake Total 1430 Output Total 800 Balance 630 Hospitalist ROS - Medication Medications: Active Medications Generic Name Dose Route Start Last Admin Trade Name Freq PRN Reason Stop Dose Admin Tramadol HCl 100 mg 09/01/20 14:51 09/01/20 21:08 Tramadol Hcl 50 Mg Tab PO 100 mg Q6H PRN Administration Moderate Pain (4-6) Hospitalist Exam Vitals: Vital Signs (12 hours) Temp Pulse Resp BP Pulse Ox 09/02/20 11:15 98.1 F 86 16 134/90 98 09/02/20 08:00 84 L 09/02/20 07:21 97.9 F 84 16 134/88 99 09/02/20 04:00 97.9 F 87 16 142/93 H 97 Weight Weight 238 lb General Appearance: NAD, awake alert Eye: PERRL ENT: normocephalic atraumatic Neck: supple Heart: RRR, normal peripheral pulses Respiratory: CTAB, normal chest expansion Gastrointestinal: soft, normal bowel sounds Extremities: 1+ LE edema Neurological: cranial nerve grossly intact, no focal deficits Psychiatric: A&O x 3 Hosp A/P - Plan Multiple falls Worsening walking difficulty with myelopathy syndrome C5-C6 herniated a disc and spinal cord compression C5-C6 with central stenosis -Patient is on Decadron -Plan for C5-C6 anterior cervical discotomy and effusion Preop screening -Patient has known history of cardiopulmonary dysfunction -patient is not diabetic -He does not require any significantpre-op work-up other than routine labs. Routine intraoperative risk management Obesity -Diet and counseling when able Hepatitis C -recent cholecystectomy in [facility] Gastric sleeve surgery in 04/2020 Injury to the posterior oropharynx during that time Labs including A1c CBC BMP and TSH and mag level.
[2020-09-02] MEDS: traMADol HCl 50 MG TAB PO PRN (20:56)
[2020-09-02] MEDS: tiZANidine HCl 4 MG TAB PO PRN (20:56)
[2020-09-03 06:18] LABS: Hemoglobin A1c 4.5 % (4.0-6.0)
[2020-09-03 06:35] LABS: Cardiac Risk 6.4 (Less than 4.5); Magnesium 2.2 mg/dL (1.6-2.6)
[2020-09-03] MEDS: Pantoprazole 40 MG VIAL IVP SCH (08:39)
--- NOTE | 2020-09-03 08:47 | PRG ---
DATE OF SERVICE: 09/03/2020 SUBJECTIVE: The patient remains stable on the surgical floor with no overnight events. He is resting comfortably on my arrival. OBJECTIVE: VITAL SIGNS: Stable, afebrile. NEUROLOGIC: He is moving all 4s in the bed without difficulty. Remains hyperreflexive throughout with some weakness in the hands. ASSESSMENT AND PLAN: The patient has significant C5-C6 herniated disk with stenosis and myelopathy. We will plan for C5-C6 anterior cervical discectomy and fusion tomorrow. He has been made n.p.o. at midnight. All questions were addressed. Job ID: [id number] [facility]
[2020-09-03] MEDS ORDERED: Simethicone Chewable 80 MG TAB PO PRN (10:17)
[2020-09-03] MEDS ORDERED: Loperamide HCl 2 MG CAP PO PRN (10:17)
--- NOTE | 2020-09-03 12:03 | CON ---
DATE OF CONSULTATION: REASON FOR CONSULTATION: Medical management. HISTORY OF PRESENT ILLNESS: A 44-year-old obese male with a history of gastric sleeve in April 2020 in [place], followed by cholecystectomy in June 2020 and some oropharynx discomfort during that time with intubation and ongoing symptoms since then, presenting with 2-week duration of generalized weakness, most notable in the hands and legs, presented to the ER. He came to the [facility] on August 22 and the scan including MRI of the lumbar spine and CT of the abdomen and pelvis were unremarkable and transferred to the inpatient rehab. In the rehab, he was noted to become progressively weak with ataxia and dysthesias in the hands and feet. Noncontrast MRI showed caudally migrating herniated disk at C5- C6 with severe central stenosis and D2 signal change of the cord. He is transferred back to the [facility] for Neurosurgery evaluation. Neurosurgery admitted him for intervention on Friday. Meanwhile, hospitalist was consulted for medical management. The patient is obese; he is not diabetic, does not take any blood pressure medications. REVIEW OF SYSTEMS: A 13-point review of system reviewed with the patient. Pertinents addressed in the history of present illness. The rest are negative including no headache, blurriness. Denies any chest pain, fever, chills, productive cough recently. No orthopnea, PND, or lower extremity edema. No nausea, vomiting, abdominal pain. He is constipated. No blood in the urine or stool. Rest of the review of systems are negative. ALLERGIES: HE HAS NO KNOWN DRUG ALLERGY. PAST MEDICAL HISTORY: Obesity and hepatitis C. PAST SURGICAL HISTORY: Gastric sleeve in April 2020, and cholecystectomy in June 2020. PHYSICAL EXAMINATION: GENERAL: The patient is afebrile. Nontoxic appearing. HEENT: Pupils are equal, round, and reactive to light. Anicteric. Mucous membrane moist. NECK: He has active range of motion in the neck area. HEART: Regular rate and rhythm without murmurs, rubs, or gallops. LUNGS: Clear to auscultation bilaterally without wheezing, rales, or rhonchi. ABDOMEN: Soft, nontender, nondistended. Good bowel sounds. No guarding or rigidity. EXTREMITIES: Without pitting edema or rash. NEUROLOGICAL: There is no focal deficit. Cranial nerves 2 through 12 grossly intact. Sensation is intact; however, he has hyperreflexia in the upper extremities DIAGNOSTIC STUDIES: Cervical spine MRI showed C5-C6 large disk extrusion with a prominent mass effect on cervical cord. There is increased signal within the cervical cord, probably suspicious for associated edema. IMPRESSION: This is a 44-year-old obese male, presenting with the followin. Multiple falls. 2. Ataxia. 3. Myelopathy syndrome. 4. C5-C6 herniated disk with spinal cord compression. 5. History of hepatitis C. 6. History of gastric sleeve and cholecystectomy in April and June 2020 respectively. 7. Injury to the posterior oropharynx in April 2020. PLAN: The patient is admitted by the Neurosurgery. We will follow him closely. I have evaluated him as a part of preop screening. The patient does not have any cardiopulmonary comorbidities. He is not diabetic and he does not take any blood pressure medications. From the medical perspective, he is quite obese and had recent history of injury to the posterior oropharynx during intubation for his surgical procedure in April and June. With these, he is a moderate risk for perioperative complications. We will check his routine labs. Given the obesity, I have screened him for diabetes as well. His blood glucose is well controlled and his A1c is 4.5. Thank you for the consult. Job ID: [id number] AMY
--- NOTE | 2020-09-03 14:21 | PDOC.HOSPP ---
- Subjective Encounter Date: 09/03/20 Encounter Time: 09:28 Subjective: Patient seen this morning father at bedside patient had lot of surgical related questions all answered to the best of my ability. - Objective Vital Signs & Weight: Vital Signs (12 hours) Temp Pulse Resp BP Pulse Ox 09/03/20 08:00 95 09/03/20 04:31 98 F 87 16 103/70 99 Weight Weight 238 lb I&O: 09/02/20 09/03/20 09/04/20 06:59 06:59 06:59 Intake Total 1430 500 Output Total 800 Balance 630 500 Hospitalist ROS - Medication Medications: Active Medications Generic Name Dose Route Start Last Admin Trade Name Freq PRN Reason Stop Dose Admin Magnesium Hydroxide 30 ml 09/01/20 14:51 09/03/20 13:23 Milk Of Magnesia 30 Ml Udcup PO 30 ml Q12H PRN Administration Constipation Pantoprazole Sodium 40 mg 09/03/20 09:00 09/03/20 08:39 Pantoprazole 40 Mg Vial IVP 40 mg DAILY ADRIANE Administration Tizanidine HCl 4 mg 09/01/20 14:51 09/02/20 20:56 Tizanidine Hcl 4 Mg Tab PO 4 mg Q6H PRN Administration Muscle Spasm Tramadol HCl 100 mg 09/01/20 14:51 09/02/20 20:56 Tramadol Hcl 50 Mg Tab PO 100 mg Q6H PRN Administration Moderate Pain (4-6) Hospitalist Exam Vitals: Vital Signs (12 hours) Temp Pulse Resp BP Pulse Ox 09/03/20 08:00 95 09/03/20 04:31 98 F 87 16 103/70 99 Weight Weight 238 lb General Appearance: NAD, awake alert Eye: PERRL, anicteric sclera ENT: normocephalic atraumatic Neck: supple Heart: RRR, normal peripheral pulses Respiratory: CTAB, normal chest expansion Gastrointestinal: soft, normal bowel sounds Extremities: 1+ LE edema Neurological: cranial nerve grossly intact, normal sensation to touch, no focal deficits Psychiatric: normal affect, normal behavior, A&O x 3 Hosp A/P - Plan Preop screening -Patient has known history of cardiopulmonary dysfunction -patient is not diabetic -He does not require any significantpre-op work-up other than routine labs. Routine intraoperative risk management Multiple falls Worsening walking difficulty with myelopathy syndrome C5-C6 herniated a disc and spinal cord compression C5-C6 with central stenosis -Patient is on Decadron -Plan for C5-C6 anterior cervical discotomy and effusion Hepatitis C -recent cholecystectomy in [facility] Gastric sleeve surgery in 04/2020 Injury to the posterior oropharynx during that time Hypothyroidism -His free T4 is normal range -Started him on low-dose levothyroxine Hyperlipidemia with LDL of 96 -Would benefit initially with a diet and exercise and repeat lipid panel in 2 months as an outpatient setting and if is still consistently elevated, then at that time it probably appropriate to start him on statin Obesity -Diet and counseling when able
[2020-09-03] MEDS: Amlodipine 5 MG TAB PO SCH (20:19)
[2020-09-03] MEDS: Morphine 2 MG/ML VIAL SLOW IVP PRN (21:33)
[2020-09-03] MEDS: tiZANidine HCl 4 MG TAB PO PRN (21:34)
[2020-09-04] MEDS: Levothyroxine Sodium 50 MCG TAB PO SCH (06:26)
[2020-09-04] MEDS: Lisinopril 20 MG TAB PO SCH (09:02)
[2020-09-04] MEDS: Pantoprazole 40 MG VIAL IVP SCH (09:02)
[2020-09-04] MEDS: Morphine 2 MG/ML VIAL SLOW IVP PRN (09:03)
[2020-09-04] MEDS ORDERED: CEFAZOLIN 2 GM in Premix Bag 1 BAG IVPB SCH (10:00)
[2020-09-04] MEDS ORDERED: Ondansetron PF 4 MG/2 ML Vial ONE (10:31)
[2020-09-04] MEDS ORDERED: Metoclopramide HCl 10 MG/2 ML VIAL ONE (10:31)
[2020-09-04] MEDS ORDERED: Rocuronium Bromide 10 MG/ML (10ML VIAL) ONE (10:31)
[2020-09-04] MEDS ORDERED: PHENYLEPHRINE-NS 100 MCG/ML 10 ML SYRINGE ONE ×2 (10:31→13:40)
[2020-09-04] MEDS ORDERED: Ketorolac Tromethamine 30 MG/ML VIAL ONE (10:31)
[2020-09-04] MEDS ORDERED: Glycopyrrolate 0.2 MG/ML 5 ML SYRINGE ONE (10:31)
[2020-09-04] MEDS ORDERED: PROPOFOL 200 MG/20 ML VIAL ONE (10:31)
[2020-09-04] MEDS ORDERED: Dexamethasone 20 MG/5 ML VIAL ONE (10:31)
[2020-09-04] MEDS ORDERED: Lidocaine 1% PF 5 ML VIAL ONE (10:31)
[2020-09-04] MEDS ORDERED: ePHEDrine 50 MG/ML VIAL ONE (10:31)
[2020-09-04] MEDS ORDERED: Fentanyl 100 MCG/2 ML VIAL ONE ×2 (12:32→13:53)
[2020-09-04] MEDS ORDERED: Phenylephrine 10 MG/ML VIAL ONE (13:39)
[2020-09-04] MEDS ORDERED: SUGAMMADEX SODIUM 200 MG/2 ML VIAL ONE (13:39)
[2020-09-04] MEDS ORDERED: Famotidine/PF 20 mg/2ml Vial ONE (13:40)
[2020-09-04] MEDS ORDERED: PACU-Morphine 4MG/ML VIAL SLOW IVP PRN (14:29)
[2020-09-04] MEDS ORDERED: Promethazine HCl 25 MG/ML VIAL IM PRN (14:29)
[2020-09-04] MEDS ORDERED: Promethazine HCl 25 MG/ML VIAL SLOW IVP PRN (14:29)
[2020-09-04] MEDS ORDERED: Ondansetron HCl/PF 4 MG/2 ML Vial IVP PRN (14:29)
--- NOTE | 2020-09-04 16:34 | PDOC.HOSPP ---
- Subjective Encounter Date: 09/04/20 Encounter Time: 16:30 Subjective: Patient returned from PACU area I have discussed with the PACU nurse. His vitals are stable systolic around 120 and he was mildly tachycardic. He is alert oriented x3 he has a drain in the anterior neck the bulb has about 20 mL of blood in it. - Objective Vital Signs & Weight: Vital Signs (12 hours) Temp Pulse Resp BP BP Pulse Ox 09/04/20 09:02 122/86 97 09/04/20 07:27 97.7 F 82 17 122/86 97 09/04/20 06:38 97.8 F 82 16 100/68 100 Weight Weight 238 lb I&O: 09/03/20 09/04/20 09/05/20 06:59 06:59 06:59 Intake Total 500 1920 Output Total 600 Balance 500 1320 Hospitalist ROS - Medication Medications: Active Medications Generic Name Dose Route Start Last Admin Trade Name Freq PRN Reason Stop Dose Admin Amlodipine Besylate 5 mg 09/03/20 21:00 09/03/20 20:19 Amlodipine 5 Mg Tab PO 5 mg HS ADRIANE Administration Levothyroxine Sodium 50 mcg 09/04/20 06:00 09/04/20 06:26 Levothyroxine Sodium 50 Mcg Tab PO 50 mcg 0600 ADRIANE Administration Lisinopril 20 mg 09/04/20 09:00 09/04/20 09:02 Lisinopril 20 Mg Tab PO 20 mg DAILY ADRIANE Administration Magnesium Hydroxide 30 ml 09/01/20 14:51 09/03/20 13:23 Milk Of Magnesia 30 Ml Udcup PO 30 ml Q12H PRN Administration Constipation Morphine Sulfate 2 mg 09/01/20 14:51 09/04/20 09:03 Morphine 2 Mg/Ml Vial SLOW IVP 2 mg Q1H PRN Administration Moderate Breakthrough Pain Pantoprazole Sodium 40 mg 09/03/20 09:00 09/04/20 09:02 Pantoprazole 40 Mg Vial IVP 40 mg DAILY ADRIANE Administration Sodium Chloride 10 ml 09/01/20 14:51 09/04/20 09:03 Flush - Normal Saline 10 Ml Syringe IVF 10 ml PRN PRN Administration Saline Flush Tizanidine HCl 4 mg 09/01/20 14:51 09/03/20 21:34 Tizanidine Hcl 4 Mg Tab PO 4 mg Q6H PRN Administration Muscle Spasm Tramadol HCl 100 mg 09/01/20 14:51 09/02/20 20:56 Tramadol Hcl 50 Mg Tab PO 100 mg Q6H PRN Administration Moderate Pain (4-6) Hospitalist Exam Vitals: Vital Signs (12 hours) Temp Pulse Resp BP BP Pulse Ox 09/04/20 09:02 122/86 97 09/04/20 07:27 97.7 F 82 17 122/86 97 09/04/20 06:38 97.8 F 82 16 100/68 100 Weight Weight 238 lb General Appearance: NAD, awake alert General - other findings: Anterior cervical drain Eye: PERRL ENT: normocephalic atraumatic Neck: supple Heart: RRR, normal peripheral pulses Respiratory: CTAB, normal chest expansion Gastrointestinal: soft, normal bowel sounds Psychiatric: normal affect, normal behavior, A&O x 3 Hosp A/P - Plan Preop screening -Patient has known history of cardiopulmonary dysfunction -patient is not diabetic -He does not require any significant pre-op work-up other than routine labs. Routine intraoperative risk management Multiple falls Worsening walking difficulty with myelopathy syndrome C5-C6 herniated a disc and spinal cord compression C5-C6 with central stenosis -Patient is on Decadron -Plan for C5-C6 anterior cervical discotomy and effusion Hepatitis C -recent cholecystectomy in [facility] Gastric sleeve surgery in 04/2020 Injury to the posterior oropharynx during that time Hypothyroidism -His free T4 is normal range -Started him on low-dose levothyroxine Hyperlipidemia with LDL of 96 -Would benefit initially with a diet and exercise and repeat lipid panel in 2 months as an outpatient setting and if is still consistently elevated, then at that time it probably appropriate to start him on statin Obesity -Diet and counseling when able 8th Status post anterior cervical dissectomy and fusion of C5-C6 -Patient doing well post procedure vaughan -IV fluid for maintenance until p.o. intake resume I been notified that patient seems to have some memory relapse which was not seen during June when he was hospitalized. He does have a mild hypothyroidism for which the supplement started. -I will also check B12 folate as well as vitamin D level -Neurology consult.
[2020-09-04] MEDS: Amlodipine 5 MG TAB PO SCH (19:58)
[2020-09-04] MEDS: CEFAZOLIN 2 GM in Premix Bag 1 BAG IVPB SCH (19:59)
[2020-09-04] MEDS ORDERED: CEFAZOLIN 1 GM VIAL SLOW IVP SCH (22:00)
[2020-09-04 22:36] LABS: #Lymphocytes 0.7 thou/uL (1.20-3.40); #Monocytes 0.3 thou/uL (0.11-0.59); #Neutrophils 4.8 thou/uL (1.40-6.50); %Basophils 0.2 % (0.0-1.0); %Eosinophils 0.4 % (0.0-10.0); %Lymphocytes 11.9 % (21.0-51.0); %Monocytes 5.4 % (0.0-10.0); %Neutrophils 82.1 % (42.0-75.0); Hemoglobin 10.3 g/dL (14.0-18.0); Mean Corpuscular HGB CONC 35.1 g/dL (32.0-36.0); Mean Corpuscular Hemoglobin 32.3 pg (27.0-31.0); Mean Platelet Volume 9.2 fL (7.4-10.4); Platelet Count 146 thou/uL (130-400); RBC Distribution Width 16.5 % (11.5-14.5); Red Blood Cell (RBC) Count 3.19 mill/uL (4.70-6.10); White Blood Cell (WBC) Count 5.8 thou/uL (4.8-10.8)
[2020-09-04 22:55] LABS: Anion Gap 13 mmol/L (10-20); BUN (Urea Nitrogen) 12 mg/dL (8.9-20.6); Calc. Creatinine Clearance 164 mL/min (70-130); Calcium 8.6 mg/dL (7.8-10.44); Carbon Dioxide 20 mmol/L (22-29); Chloride 108 mmol/L (98-107); Glucose 113 mg/dL (70-105); Potassium 4.4 mmol/L (3.5-5.1); Sodium 137 mmol/L (136-145)
[2020-09-05] MEDS: CEFAZOLIN 2 GM in Premix Bag 1 BAG IVPB SCH ×3 (03:06→20:02)
[2020-09-05] MEDS: Levothyroxine Sodium 50 MCG TAB PO SCH (05:37)
[2020-09-05 05:55] LABS: #Lymphocytes 1.1 thou/uL (1.20-3.40); #Monocytes 0.5 thou/uL (0.11-0.59); #Neutrophils 4.6 thou/uL (1.40-6.50); %Eosinophils 0.5 % (0.0-10.0); %Lymphocytes 17.9 % (21.0-51.0); %Monocytes 7.7 % (0.0-10.0); %Neutrophils 73.9 % (42.0-75.0); Hemoglobin 10.1 g/dL (14.0-18.0); Mean Corpuscular HGB CONC 34.1 g/dL (32.0-36.0); Mean Corpuscular Hemoglobin 31.7 pg (27.0-31.0); Mean Corpuscular Volume 93.1 fL (78.0-98.0); Mean Platelet Volume 9.7 fL (7.4-10.4); Platelet Count 149 thou/uL (130-400); RBC Distribution Width 16.7 % (11.5-14.5); Red Blood Cell (RBC) Count 3.19 mill/uL (4.70-6.10); White Blood Cell (WBC) Count 6.2 thou/uL (4.8-10.8)
[2020-09-05 06:12] LABS: Anion Gap 14 mmol/L (10-20); BUN (Urea Nitrogen) 11 mg/dL (8.9-20.6); Calc. Creatinine Clearance 166 mL/min (70-130); Calcium 8.7 mg/dL (7.8-10.44); Carbon Dioxide 21 mmol/L (22-29); Chloride 108 mmol/L (98-107); Glucose 102 mg/dL (70-105); Potassium 4.2 mmol/L (3.5-5.1); Sodium 139 mmol/L (136-145)
[2020-09-05 06:32] LABS: Vitamin D, 25 Hydroxy 10.8 ng/ml (> 30.0)
--- NOTE | 2020-09-05 06:52 | OP ---
DATE OF PROCEDURE: 09/04/2020 CLINICAL TECH: Nia Colon PA-C PROCEDURES PERFORMED: Anterior cervical discectomy C5-C6, interbody arthrodesis, intervertebral biomechanical device, local morselized autograft, demineralized bone matrix, anterior titanium instrumentation, C5-C6. DESCRIPTION OF PROCEDURE: The patient was brought to the operating room and intubated. He was positioned supine with the head in modest extension on gel-filled donut. An incision was made in the right precervical area and dissected medial to the sternocleidomastoid muscle, we identified the anterior cervical spine and the level was confirmed by x-ray. The exposure was exceedingly difficult given his very large size. The lowest level we could rita was C3-C4 and we counted down from this level. After we identified C5-C6, we placed distraction across the disk space and using operating microscope and microdissection techniques, completely compressed the intervertebral disk. This was exceedingly difficult given the caudal migration and the degree of cord compression, but ultimately a meaningful and satisfactory decompression was achieved. Next, the bony endplates were decorticated for the purpose of arthrodesis and appropriately-sized intervertebral biomechanical PEEK device was brought into the field. It was filled with demineralized bone matrix, local morselized autograft, and tapped in place securely at C5-C6. Next, an anterior plate was brought into the field and secured at C5 and C6 using two 14-mm screws at each level. The wound was then extensively irrigated and MAC hemostasis was secured. The wound was closed in anatomic layers. Job ID: [id number]
--- NOTE | 2020-09-05 07:06 | PRG ---
DATE OF SERVICE: 09/05/2020 SUBJECTIVE: The patient is postoperative day #1 status post C5-C6 ACDF for a very large disk herniation. Since the surgery, he appears to have some improved sensation in his hands. His strength remains about the same. His pain has been well controlled overnight, he is tolerating a regular diet. Tripp catheter remains in place. He continues to have some issues with intermittent memory lapses since his stay, and Neurology has been recently consulted, and they plan to do an EEG later today. RONAK output overnight was 25 cc. OBJECTIVE: On exam this morning, he is comfortable. He is moving all extremities in the bed, but he is somewhat weak in the hands as consistent with prior exams. He is hyperreflexic throughout. Incision is clean, dry, and intact. PLAN: Has had some issues with urinary retention so will leave tripp in place for now and do void trial later in rehab. We will defer any additional evaluation for his memory issues to Neurology and appreciate their opinion. Depending on this, I am hopeful that the patient may be able to transition back to inpatient rehab in the near future. Job ID: [id number] [facility]
[2020-09-05] MEDS: Folic Acid/Vit B Comp W-C PO SCH (08:39)
[2020-09-05] MEDS: Cholecalciferol 1,000 UNITS (25 MCG) TAB PO SCH (08:39)
[2020-09-05] MEDS: Pantoprazole 40 MG VIAL IVP SCH (08:39)
[2020-09-05] MEDS: Lisinopril 20 MG TAB PO SCH (08:39)
--- NOTE | 2020-09-05 12:51 | PDOC.HOSPP ---
- Subjective Encounter Date: 09/05/20 Encounter Time: 09:55 Subjective: Patient is getting electroencephalogram study. He appears well. He denies any new complaints. His folic acid as well as vitamin D levels are in the very low normal range and started him on supplements today - Objective Vital Signs & Weight: Vital Signs (12 hours) Temp Pulse Resp BP BP Pulse Ox 09/05/20 12:01 97.7 F 83 10 L 144/94 H 99 09/05/20 08:39 122/83 99 09/05/20 07:51 97.9 F 83 10 L 122/83 99 09/05/20 03:08 98.4 F 94 18 122/79 96 Weight Weight 238 lb I&O: 09/04/20 09/05/20 09/06/20 06:59 06:59 06:59 Intake Total 1920 1195 Output Total 600 1050 Balance 1320 145 Result Diagrams: 09/05/20 05:31 09/05/20 05:31 Hospitalist ROS - Medication Medications: Active Medications Generic Name Dose Route Start Last Admin Trade Name Freq PRN Reason Stop Dose Admin Amlodipine Besylate 5 mg 09/03/20 21:00 09/04/20 19:58 Amlodipine 5 Mg Tab PO 5 mg HS ADRIANE Administration Cholecalciferol 2,000 units 09/05/20 09:00 09/05/20 08:39 Cholecalciferol 1,000 Units (25 Mcg) Tab PO 2,000 units DAILY ADRIANE Administration Cefazolin Sodium/Dextrose 2 gm 50 mls @ 100 mls/hr 09/04/20 20:00 09/05/20 12:13 / Device IVPB 09/06/20 20:01 50 mls 0400,1200,2000 ADRIANE Administration Levothyroxine Sodium 50 mcg 09/04/20 06:00 09/05/20 05:37 Levothyroxine Sodium 50 Mcg Tab PO 50 mcg 0600 ADRIANE Administration Lisinopril 20 mg 09/04/20 09:00 09/05/20 08:39 Lisinopril 20 Mg Tab PO 20 mg DAILY ADRIANE Administration Magnesium Hydroxide 30 ml 09/01/20 14:51 09/03/20 13:23 Milk Of Magnesia 30 Ml Udcup PO 30 ml Q12H PRN Administration Constipation Morphine Sulfate 2 mg 09/01/20 14:51 09/04/20 09:03 Morphine 2 Mg/Ml Vial SLOW IVP 2 mg Q1H PRN Administration Moderate Breakthrough Pain Pantoprazole Sodium 40 mg 09/03/20 09:00 09/05/20 08:39 Pantoprazole 40 Mg Vial IVP 40 mg DAILY ADRIANE Administration Sodium Chloride 10 ml 09/01/20 14:51 09/05/20 08:40 Flush - Normal Saline 10 Ml Syringe IVF 10 ml PRN PRN Administration Saline Flush Tizanidine HCl 4 mg 09/01/20 14:51 09/03/20 21:34 Tizanidine Hcl 4 Mg Tab PO 4 mg Q6H PRN Administration Muscle Spasm Tramadol HCl 100 mg 09/01/20 14:51 09/02/20 20:56 Tramadol Hcl 50 Mg Tab PO 100 mg Q6H PRN Administration Moderate Pain (4-6) Vitamin B Complex/Vit C/Folic Acid 1 tab 09/05/20 09:00 09/05/20 08:39 Folic Acid/Vit B Comp W-C PO 1 tab DAILY ADRIANE Administration Hospitalist Exam Vitals: Vital Signs (12 hours) Temp Pulse Resp BP BP Pulse Ox 09/05/20 12:01 97.7 F 83 10 L 144/94 H 99 09/05/20 08:39 122/83 99 09/05/20 07:51 97.9 F 83 10 L 122/83 99 09/05/20 03:08 98.4 F 94 18 122/79 96 Weight Weight 238 lb General Appearance: NAD, awake alert Eye: PERRL ENT: normocephalic atraumatic Neck: supple Heart: RRR, normal peripheral pulses Respiratory: CTAB, normal chest expansion Gastrointestinal: soft, normal bowel sounds Neurological: no focal deficits Psychiatric: normal affect, normal behavior, A&O x 3 Hosp A/P - Plan Preop screening -Patient has known history of cardiopulmonary dysfunction -patient is not diabetic -He does not require any significant pre-op work-up other than routine labs. Routine intraoperative risk management Multiple falls Worsening walking difficulty with myelopathy syndrome C5-C6 herniated a disc and spinal cord compression C5-C6 with central stenosis -Patient is on Decadron -Plan for C5-C6 anterior cervical discotomy and effusion Hepatitis C -recent cholecystectomy in [facility] Gastric sleeve surgery in 04/2020 Injury to the posterior oropharynx during that time Hypothyroidism -His free T4 is normal range -Started him on low-dose levothyroxine Hyperlipidemia with LDL of 96 -Would benefit initially with a diet and exercise and repeat lipid panel in 2 months as an outpatient setting and if is still consistently elevated, then at that time it probably appropriate to start him on statin Obesity -Diet and counseling when able 8th Status post anterior cervical dissectomy and fusion of C5-C6 -Patient doing well post procedure vaughan -IV fluid for maintenance until p.o. intake resume I been notified that patient seems to have some memory relapse which was not seen during June when he was hospitalized. He does have a mild hypothyroidism for which the supplement started. -I will also check B12 folate as well as vitamin D level -Neurology consult. Folic acid and vitamin D deficiency -TSH in the normal range as well as B12. folic acid as well as vitamin D levels are in the very low normal range and started him on supplements today He is doing well from a neurosurgery perspective. Follow-up in electroencephalogram Continue the medical management
--- NOTE | 2020-09-05 14:15 | CON ---
NEUROLOGY CONSULTATION DATE OF CONSULTATION: 09/05/2020 REASON FOR CONSULTATION: Memory problems. HISTORY OF PRESENT ILLNESS: Mr. Hardy Larsen is 44-year-old male with medical history significant for gastric sleeve surgery in April 2020 in [place] followed by cholecystectomy in June 2020, presented to the hospital on 09/02/2020 with 2-week history of generalized weakness. He came to the [facility], where the scan was done including MRI of the lumbar and the spine and the abdomen and pelvis, which were unremarkable, and he was transferred to the inpatient rehab. He became progressively weak with ataxia and dysesthesias of the hands and the feet, and noncontrast head CT was done, which showed caudally migrating herniated disk at the C5-C6 level with severe canal stenosis and signal change of the cord. He was transferred back to [facility] for neurosurgery evaluation and underwent anterior cervical diskectomy with C5-C6 interbody arthrodesis, intervertebral biomechanical device, localized morselized autograft, demineralized bone matrix, and anterior titanium instrumentation at the C5-C6 level. He tolerated the procedure well. The procedure was performed on 09/04/2020. Neurology was consulted because he has an ongoing memory issues since the last few months, which according to him have been getting better. The patient denies nausea, vomiting, headache, chest pain, abdominal pain, recent illness, or recent exposure to COVID. He denies focal weakness or focal paresthesia, but does have the generalized weakness. REVIEW OF SYSTEMS: All systems reviewed and were negative except the pertinent positives and negatives mentioned in the HPI. ALLERGIES: NO KNOWN DRUG ALLERGIES. PAST MEDICAL HISTORY: Obesity, hepatitis C. PAST SURGICAL HISTORY: Gastric sleeve surgery in April 2020 and cholecystectomy in June 2020. Vital Signs & Weight: Vital Signs (12 hours) Temp Pulse Resp BP BP Pulse Ox 09/05/20 12:01 97.7 F 83 10 L 144/94 H 99 09/05/20 08:39 122/83 99 09/05/20 07:51 97.9 F 83 10 L 122/83 99 09/05/20 03:08 98.4 F 94 18 122/79 96 Weight Weight 238 lb I&O: 09/04/20 09/05/20 09/06/20 06:59 06:59 06:59 Intake Total 1920 1195 Output Total 600 1050 Balance 1320 145 Active Medications Generic Name Dose Route Start Last Admin Trade Name Freq PRN Reason Stop Dose Admin Amlodipine Besylate 5 mg 09/03/20 21:00 09/04/20 19:58 Amlodipine 5 Mg Tab PO 5 mg HS ADRIANE Administration Cholecalciferol 2,000 units 09/05/20 09:00 09/05/20 08:39 Cholecalciferol 1,000 Units (25 Mcg) Tab PO 2,000 units DAILY ADRIANE Administration Cefazolin Sodium/Dextrose 2 gm 50 mls @ 100 mls/hr 09/04/20 20:00 09/05/20 12:13 / Device IVPB 09/06/20 20:01 50 mls 0400,1200,2000 ADRIANE Administration Levothyroxine Sodium 50 mcg 09/04/20 06:00 09/05/20 05:37 Levothyroxine Sodium 50 Mcg Tab PO 50 mcg 0600 ADRIANE Administration Lisinopril 20 mg 09/04/20 09:00 09/05/20 08:39 Lisinopril 20 Mg Tab PO 20 mg DAILY ADRIANE Administration Magnesium Hydroxide 30 ml 09/01/20 14:51 09/03/20 13:23 Milk Of Magnesia 30 Ml Udcup PO 30 ml Q12H PRN Administration Constipation Morphine Sulfate 2 mg 09/01/20 14:51 09/04/20 09:03 Morphine 2 Mg/Ml Vial SLOW IVP 2 mg Q1H PRN Administration Moderate Breakthrough Pain Pantoprazole Sodium 40 mg 09/03/20 09:00 09/05/20 08:39 Pantoprazole 40 Mg Vial IVP 40 mg DAILY ADRIANE Administration Sodium Chloride 10 ml 09/01/20 14:51 09/05/20 08:40 Flush - Normal Saline 10 Ml Syringe IVF 10 ml PRN PRN Administration Saline Flush Tizanidine HCl 4 mg 09/01/20 14:51 09/03/20 21:34 Tizanidine Hcl 4 Mg Tab PO 4 mg Q6H PRN Administration Muscle Spasm Tramadol HCl 100 mg 09/01/20 14:51 09/02/20 20:56 Tramadol Hcl 50 Mg Tab PO 100 mg Q6H PRN Administration Moderate Pain (4-6) Vitamin B Complex/Vit C/Folic Acid 1 tab 09/05/20 09:00 09/05/20 08:39 Folic Acid/Vit B Comp W-C PO 1 tab DAILY ADRIANE Administration Vitals: Vital Signs (12 hours) Temp Pulse Resp BP BP Pulse Ox 09/05/20 12:01 97.7 F 83 10 L 144/94 H 99 09/05/20 08:39 122/83 99 09/05/20 07:51 97.9 F 83 10 L 122/83 99 09/05/20 03:08 98.4 F 94 18 122/79 96 Weight Weight 238 lb PHYSICAL EXAMINATION: VITAL SIGNS: Blood pressure 140/66, respiratory rate 18, and pulse 88. General Appearance: NAD, awake alert Eye: PERRL ENT: normocephalic atraumatic Neck: supple Heart: RRR, normal peripheral pulses Respiratory: CTAB, normal chest expansion Gastrointestinal: soft, normal bowel sounds Neurological Mental status, the patient is alert and oriented to person, place, and time. Recent and remote memory intact. Speech is clear. Cranial nerves 2 through 12 intact. Motor, muscle tone and bulk are normal. Moving all 4 extremities. Sensory intact. Cerebellar, finger-nose testing intact. Gait deferred due to the patient's safety reason. DATA REVIEWED: I reviewed the MRI of the cervical spine, which showed C5-C6 large disk extrusion with prominent mass effect on the cervical cord. He is currently status post surgery and is doing well. ASSESSMENT AND PLAN: Mr. Larsen is a 44-year-old male with history significant for myelopathy syndrome, status post surgery for a C5-C6 herniated disk with spinal cord compression, has been doing well since surgery. He does have ongoing memory issues, which according to him have been improved. We will consider head CT to rule out acute intracranial process and EEG to rule out underlying cortical irritability. If this testing is negative, then consider outpatient neurology followup for a comprehensive memory workup including neuropsychological testing. Neuro checks every 4 hours. Continue home medications. Continue medical management per primary team and Neurosurgery. PT/OT. Further recommendations will depend on the results of the testing. Thank you for the consult. Plan discussed in detail with the patient, family member, and the nursing staff. Job ID: [id number] [id number]
--- NOTE | 2020-09-05 16:35 | PDOC.EEG ---
Neurology EEG Report - Report Report: This EEG was performed using 24 channel [employer] video EEG machine with 24 disc electrodes. This was an extended 2 hours 4 minutes of inpatient video EEG recording. Digital analysis of the EEG was done for spike and seizure detection which revealed no abnormalities. Background: The posterior background rhythm is 8.5 -9 Hz. The backround rhythm attenuates with eye opening and enhances with eye closure. Hyperventilation: Not performed. Photic Stimulation: No significant response. Sleep: Drowsiness and sleep are observed. EEG Diagnosis: Intermittent irregular theta activity seen. Clinical Interpretation: This EEG is consistent with mild generalized, nonspecific cerebral dysfunction.
[2020-09-05] MEDS: Amlodipine 5 MG TAB PO SCH (20:00)
[2020-09-05] MEDS: traMADol HCl 50 MG TAB PO PRN (20:01)
[2020-09-05] MEDS: tiZANidine HCl 4 MG TAB PO PRN (20:01)
[2020-09-06] MEDS: CEFAZOLIN 2 GM in Premix Bag 1 BAG IVPB SCH ×2 (03:12→11:49)
[2020-09-06] MEDS: Levothyroxine Sodium 50 MCG TAB PO SCH (05:23)
[2020-09-06 05:30] LABS: #Eosinphils 0.1 thou/uL (0.0-0.7); #Lymphocytes 1.3 thou/uL (1.20-3.40); #Monocytes 0.5 thou/uL (0.11-0.59); #Neutrophils 3.2 thou/uL (1.40-6.50); %Basophils 0.7 % (0.0-1.0); %Eosinophils 1.4 % (0.0-10.0); %Lymphocytes 26.2 % (21.0-51.0); %Monocytes 8.8 % (0.0-10.0); %Neutrophils 62.9 % (42.0-75.0); Hemoglobin 9.6 g/dL (14.0-18.0); Mean Corpuscular HGB CONC 34.4 g/dL (32.0-36.0); Mean Corpuscular Hemoglobin 32.3 pg (27.0-31.0); Mean Corpuscular Volume 93.9 fL (78.0-98.0); Mean Platelet Volume 9.3 fL (7.4-10.4); Platelet Count 134 thou/uL (130-400); RBC Distribution Width 16.7 % (11.5-14.5); Red Blood Cell (RBC) Count 2.98 mill/uL (4.70-6.10); White Blood Cell (WBC) Count 5.1 thou/uL (4.8-10.8)
[2020-09-06 05:43] LABS: Anion Gap 13 mmol/L (10-20); BUN (Urea Nitrogen) 13 mg/dL (8.9-20.6); Calc. Creatinine Clearance 176 mL/min (70-130); Calcium 8.8 mg/dL (7.8-10.44); Carbon Dioxide 23 mmol/L (22-29); Chloride 109 mmol/L (98-107); Glucose 92 mg/dL (70-105); Potassium 3.9 mmol/L (3.5-5.1); Sodium 141 mmol/L (136-145)
[2020-09-06] MEDS: traMADol HCl 50 MG TAB PO PRN (05:46)
--- NOTE | 2020-09-06 08:07 | DIS ---
DATE OF ADMISSION: 09/01/2020 DATE OF DISCHARGE: 09/05/2020 PROCEDURE: C5-C6 anterior cervical discectomy and fusion. HOSPITAL COURSE: The patient is a 44-year-old male, who was recently evaluated in the emergency department for weakness and vomiting and send to rehab rehab. He continued to progress with myelopathic picture and was evaluated MRI of the cervical spine without contrast, which was notable for a large disk herniation at C5-C6 with T2 signal changes. He was admitted by our team for cervical herniated disk with myelopathy. He underwent C5-C6 ACDF on 09/04/2020. Following the surgery, he was transitioned to the Med/Surg floor, where his pain has been well controlled with p.o. medication, he is tolerating regular diet. He did have some urinary retention during his admission course, which required Holt catheter placement. He had a RONAK drain placed intraoperatively and this output has trended down and was removed on postoperative day #2. He did have some memory issues during his admission course and was evaluated by Neurology with an unremarkable EEG. They planned for additional workup on the outpatient basis. At this point, we feel that he can transition to inpatient rehabilitation. He will need ongoing physical therapy, occupational therapy, and void trial to hopefully remove his Holt in the near future. We will go ahead and dismiss him over to rehab later today and I will follow up with him in 2 weeks. Job ID: [id number] MTDD
--- NOTE | 2020-09-06 08:10 | PRG ---
DATE OF SERVICE: 09/06/2020 Mr. Larsen is doing quite well. Reports subjective improvement in his myelopathic symptoms and has had no postoperative sequelae. He can continue to be mobilized and will undoubtedly need rehab for his severe myelopathy. We will plan on a 4-week followup with x-rays. Job ID: [id number]
[2020-09-06] MEDS: Folic Acid/Vit B Comp W-C PO SCH (08:26)
[2020-09-06] MEDS: Cholecalciferol 1,000 UNITS (25 MCG) TAB PO SCH (08:26)
[2020-09-06] MEDS: Lisinopril 20 MG TAB PO SCH (08:26)
[2020-09-06 11:54] VITALS: BP 138/93; TEMP 97.6
--- NOTE | 2020-09-06 13:19 | PDOC.HOSPP ---
- Subjective Encounter Date: 09/06/20 Encounter Time: 09:40 Subjective: Patient is resting he has no acute distress. He is anterior drain bulb removed. He is going to be discharged to the inpatient rehab - Objective Vital Signs & Weight: Vital Signs (12 hours) Temp Pulse Pulse Resp BP BP BP 09/06/20 11:54 97.6 F 98 18 138/93 H 09/06/20 11:07 104 H 138/93 H 09/06/20 08:26 134/89 09/06/20 07:12 98 F 79 14 134/89 09/06/20 02:35 97.7 F 83 18 105/70 Pulse Ox Pulse Ox 09/06/20 11:54 97 09/06/20 11:07 98 09/06/20 08:26 99 09/06/20 07:12 99 09/06/20 02:35 97 Weight Weight 238 lb I&O: 09/05/20 09/06/20 09/07/20 06:59 06:59 06:59 Intake Total 1195 1830 Output Total 1050 1060 0 Balance 145 770 0 Result Diagrams: 09/06/20 05:03 09/06/20 05:03 Hospitalist ROS - Medication Medications: Active Medications Generic Name Dose Route Start Last Admin Trade Name Freq PRN Reason Stop Dose Admin Amlodipine Besylate 5 mg 09/03/20 21:00 09/05/20 20:00 Amlodipine 5 Mg Tab PO 5 mg HS ADRIANE Administration Cholecalciferol 2,000 units 09/05/20 09:00 09/06/20 08:26 Cholecalciferol 1,000 Units (25 Mcg) Tab PO 2,000 units DAILY ADRIANE Administration Cefazolin Sodium/Dextrose 2 gm 50 mls @ 100 mls/hr 09/04/20 20:00 09/06/20 11:49 / Device IVPB 09/06/20 20:01 Not Given 0400,1200,2000 ADRIANE Levothyroxine Sodium 50 mcg 09/04/20 06:00 09/06/20 05:23 Levothyroxine Sodium 50 Mcg Tab PO 50 mcg 0600 ADRIANE Administration Lisinopril 20 mg 09/04/20 09:00 09/06/20 08:26 Lisinopril 20 Mg Tab PO 20 mg DAILY ADRIANE Administration Magnesium Hydroxide 30 ml 09/01/20 14:51 09/03/20 13:23 Milk Of Magnesia 30 Ml Udcup PO 30 ml Q12H PRN Administration Constipation Morphine Sulfate 2 mg 09/01/20 14:51 09/04/20 09:03 Morphine 2 Mg/Ml Vial SLOW IVP 2 mg Q1H PRN Administration Moderate Breakthrough Pain Pantoprazole Sodium 40 mg 09/06/20 09:00 09/06/20 08:26 Pantoprazole 40 Mg Tab PO 40 mg DAILY ADRIANE Administration Sodium Chloride 10 ml 09/01/20 14:51 09/05/20 08:40 Flush - Normal Saline 10 Ml Syringe IVF 10 ml PRN PRN Administration Saline Flush Tizanidine HCl 4 mg 09/01/20 14:51 09/05/20 20:01 Tizanidine Hcl 4 Mg Tab PO 4 mg Q6H PRN Administration Muscle Spasm Tramadol HCl 100 mg 09/01/20 14:51 09/06/20 05:46 Tramadol Hcl 50 Mg Tab PO 100 mg Q6H PRN Administration Moderate Pain (4-6) Vitamin B Complex/Vit C/Folic Acid 1 tab 09/05/20 09:00 09/06/20 08:26 Folic Acid/Vit B Comp W-C PO 1 tab DAILY ADRIANE Administration Hospitalist Exam Vitals: Vital Signs (12 hours) Temp Pulse Pulse Resp BP BP BP 09/06/20 11:54 97.6 F 98 18 138/93 H 09/06/20 11:07 104 H 138/93 H 09/06/20 08:26 134/89 09/06/20 07:12 98 F 79 14 134/89 09/06/20 02:35 97.7 F 83 18 105/70 Pulse Ox Pulse Ox 09/06/20 11:54 97 09/06/20 11:07 98 09/06/20 08:26 99 09/06/20 07:12 99 09/06/20 02:35 97 Weight Weight 238 lb General Appearance: NAD, awake alert Eye: PERRL ENT: normocephalic atraumatic Neck: supple Heart: RRR, normal peripheral pulses Respiratory: CTAB, normal chest expansion Gastrointestinal: soft, normal bowel sounds Neurological: cranial nerve grossly intact, no focal deficits Psychiatric: normal affect, normal behavior, A&O x 3 Hosp A/P - Plan Preop screening -Patient has known history of cardiopulmonary dysfunction -patient is not diabetic -He does not require any significant pre-op work-up other than routine labs. 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 intake resume I been notified that patient seems to have some memory relapse which was not seen during June when he was hospitalized. He does have a mild hypothyroidism for which the supplement started. -I will also check B12 folate as well as vitamin D level -Neurology consult. Folic acid and vitamin D deficiency -TSH in the normal range as well as B12. folic acid as well as vitamin D levels are in the very low normal range and started him on supplements today He is doing well from a neurosurgery perspective. Follow-up in electroencephalogram Continue the medical management 10th Inpatient rehab will send him with a folate as well as vitamin D supplements.
== END 2020-09-06 13:28 | DRG 472 ==
LOC: SURG B 14:01
PROVIDERS: ADMIT Physical Medicine & Rehabilitation; ATTEND Internal Medicine
PROC: 0RG10A0 Fusion of Cervical Vertebral Joint with Interbody Fusion Device, Anterior Approach, Anterior Column, Open Approach (ICD-10-PCS; principal; 2020-09-04)
PROC: 00NW0ZZ Release Cervical Spinal Cord, Open Approach (ICD-10-PCS; 2020-09-04)
PROC: 0RB30ZZ Excision of Cervical Vertebral Disc, Open Approach (ICD-10-PCS; 2020-09-04)
PROC: 0T9B70Z Drainage of Bladder with Drainage Device, Via Natural or Artificial Opening (ICD-10-PCS; 2020-09-05)
DX: M48.02 Spinal stenosis, cervical region (principal); M50.022 Cervical disc disorder at C5-C6 level with myelopathy; Z20.822 Contact with and (suspected) exposure to COVID-19; E66.01 Morbid (severe) obesity due to excess calories; R29.6 Repeated falls; B19.20 Unspecified viral hepatitis C without hepatic coma; R27.0 Ataxia, unspecified; E03.9 Hypothyroidism, unspecified; E78.5 Hyperlipidemia, unspecified; E53.8 Deficiency of other specified B group vitamins; E55.9 Vitamin D deficiency, unspecified; R33.9 Retention of urine, unspecified; Z90.49 Acquired absence of other specified parts of digestive tract; Z68.38 Body mass index [BMI] 38.0-38.9, adult; Z79.899 Other long term (current) drug therapy
CPT/HCPCS: 36415; 76000; 80048; 80061; 82306; 82607; 82746; 83036; 83735; 84439; 84443; 85025; 95712; 95819; 95957; C1713; C1776; C9113; J0690; J1100; J1200; J1885; J2270; J2370; J2405; J2704; J2765; J3010; J3490; S0028

== ENCOUNTER 2020-10-02 05:17 | Emergency (ER) | payer OTHER, SELFPAY ==
[2020-10-02 05:52] LABS: #Eosinphils 0.2 thou/uL (0.0-0.7); #Lymphocytes 1.5 thou/uL (1.20-3.40); #Monocytes 0.7 thou/uL (0.11-0.59); #Neutrophils 4.3 thou/uL (1.40-6.50); %Basophils 0.7 % (0.0-1.0); %Eosinophils 2.4 % (0.0-10.0); %Lymphocytes 22.7 % (21.0-51.0); %Monocytes 10.6 % (0.0-10.0); %Neutrophils 63.7 % (42.0-75.0); Hemoglobin 11.9 g/dL (14.0-18.0); Mean Corpuscular HGB CONC 34.8 g/dL (32.0-36.0); Mean Corpuscular Hemoglobin 32.9 pg (27.0-31.0); Mean Corpuscular Volume 94.6 fL (78.0-98.0); Mean Platelet Volume 9.9 fL (7.4-10.4); Platelet Count 172 thou/uL (130-400); RBC Distribution Width 13.6 % (11.5-14.5); White Blood Cell (WBC) Count 6.8 thou/uL (4.8-10.8)
[2020-10-02 06:14] LABS: ALT (SGPT) 33 U/L (8-55); AST (SGOT) 13 U/L (5-34); Alkaline Phosphatase 134 U/L (40-110); Anion Gap 19 mmol/L (10-20); BUN (Urea Nitrogen) 20 mg/dL (8.9-20.6); Bilirubin, Total 1.2 mg/dL (0.2-1.2); Calc. Creatinine Clearance 0 mL/min (70-130); Calcium 9.3 mg/dL (7.8-10.44); Carbon Dioxide 15 mmol/L (22-29); Chloride 108 mmol/L (98-107); Globulin 2.8 g/dL (2.4-3.5); Glucose 94 mg/dL (70-105); Potassium 3.2 mmol/L (3.5-5.1); Protein, Total 6.8 g/dL (6.0-8.3); Sodium 139 mmol/L (136-145)
[2020-10-02 07:40] LABS: Bilirubin Moderate (Negative); Blood, Urine Large (Negative); Glucose, Urine (Dipstick) Negative (Negative); Ketone, Urine 40 mg/dL (Negative); Leukocyte Moderate (Negative); Nitrite Negative (Negative); Protein, Urine (Dipstick) 100 mg/dL (Neg-Trace); Specific Gravity, Urine 1.025 (1.005-1.030); Urobilinogen 0.2 mg/dL (Less than 2); pH, Urine 5.5 (5.0-9.0)
[2020-10-02 08:02] LABS: Clarity Turbid (Clear)
[2020-10-02 08:09] LABS: RBC/HPF Greater than 50 HPF (0-3)
[2020-10-02 08:10] LABS: Bacteria/HPF Rare-Few HPF (None Seen)
[2020-10-02] MEDS ORDERED: Acetaminophen 500 MG TAB ONE (08:41)
== END 2020-10-02 08:35 | disposition home or self-care (01) ==
LOC: ERS 05:17
DX: N39.0 Urinary tract infection, site not specified (principal); M79.622 Pain in left upper arm; M79.621 Pain in right upper arm; K21.9 Gastro-esophageal reflux disease without esophagitis; I10 Essential (primary) hypertension; Z79.899 Other long term (current) drug therapy
CPT/HCPCS: 36415; 51702; 80053; 81003; 81015; 85025; 87077; 87086; 87186; 94760

== ENCOUNTER 2020-10-04 13:22 | Emergency (ER) | payer SELFPAY ==
[~2020-10-04 13:22] MED LIST: Iopamidol-370 76% 500 ML 1 ML ONE
[2020-10-04 14:15] LABS: #Basophils 0.1 thou/uL (0.0-0.2); #Eosinphils 0.1 thou/uL (0.0-0.7); #Lymphocytes 1.2 thou/uL (1.20-3.40); #Monocytes 0.4 thou/uL (0.11-0.59); #Neutrophils 2.3 thou/uL (1.40-6.50); %Basophils 1.2 % (0.0-1.0); %Eosinophils 3.1 % (0.0-10.0); %Monocytes 10.7 % (0.0-10.0); Hemoglobin 10.8 g/dL (14.0-18.0); Mean Corpuscular HGB CONC 35.5 g/dL (32.0-36.0); Mean Corpuscular Hemoglobin 33.6 pg (27.0-31.0); Mean Corpuscular Volume 94.8 fL (78.0-98.0); Mean Platelet Volume 9.8 fL (7.4-10.4); Platelet Count 151 thou/uL (130-400); White Blood Cell (WBC) Count 4.1 thou/uL (4.8-10.8)
[2020-10-04 14:40] LABS: ALT (SGPT) 26 U/L (8-55); AST (SGOT) 18 U/L (5-34); Albumin 3.6 g/dL (3.5-5.0); Alkaline Phosphatase 110 U/L (40-110); Anion Gap 16 mmol/L (10-20); BUN (Urea Nitrogen) 23 mg/dL (8.9-20.6); Bilirubin, Total 0.8 mg/dL (0.2-1.2); Calc. Creatinine Clearance 0 mL/min (70-130); Calcium 8.7 mg/dL (7.8-10.44); Carbon Dioxide 18 mmol/L (22-29); Chloride 109 mmol/L (98-107); Globulin 2.5 g/dL (2.4-3.5); Glucose 92 mg/dL (70-105); Lipase 17 U/L (8-78); Potassium 3.5 mmol/L (3.5-5.1); Protein, Total 6.1 g/dL (6.0-8.3); Sodium 139 mmol/L (136-145)
[2020-10-04 16:22] LABS: Bilirubin Small (Negative); Blood, Urine Large (Negative); Glucose, Urine (Dipstick) Negative (Negative); Ketone, Urine 40 mg/dL (Negative); Leukocyte Negative (Negative); Nitrite Negative (Negative); Protein, Urine (Dipstick) 30 mg/dL (Neg-Trace); Specific Gravity, Urine 1.015 (1.005-1.030); Urobilinogen 0.2 mg/dL (Less than 2)
[2020-10-04 16:23] LABS: Clarity Hazy (Clear)
[2020-10-04 16:27] LABS: Bacteria/HPF Rare-Few HPF (None Seen); WBC/HPF None Seen HPF (0-3)
== END 2020-10-04 17:40 | disposition home or self-care (01) ==
LOC: ERS 13:22
DX: T83.511A Infection and inflammatory reaction due to indwelling urethral catheter, initial encounter (principal); K21.9 Gastro-esophageal reflux disease without esophagitis; I10 Essential (primary) hypertension; Z79.899 Other long term (current) drug therapy
CPT/HCPCS: 36415; 74177; 80053; 81003; 81015; 83690; 85025; Q9967

== ENCOUNTER 2020-12-13 09:34 | Outpatient (CLI) | payer SELFPAY | END 2020-12-13 09:35 | disposition home or self-care (01) | LOC: TBSIIMAG 09:34 | PROVIDERS: ATTEND Physician Assistant | DX: M54.2 Cervicalgia (principal); M47.812 Spondylosis without myelopathy or radiculopathy, cervical region; Z98.890 Other specified postprocedural states | CPT/HCPCS: 72040 ==

== ENCOUNTER 2021-01-18 13:28 | Outpatient (CLI) | payer SELFPAY | END 2021-01-18 13:29 | disposition home or self-care (01) | LOC: TBSIIMAG 13:28 | PROVIDERS: ATTEND Neurological Surgery | DX: M54.12 Radiculopathy, cervical region (principal); Z98.1 Arthrodesis status | CPT/HCPCS: 72040 ==